=== PATIENT | male | born 1940 | race Caucasian/White ===

== ENCOUNTER → 2016-04-30 | Outpatient (CLI) | payer MEDICARE, OTHER ==
[~2016-04-30] MED LIST: ASPI300S4 PR; ASPI81TA27 PO; ATOR1TAB; CLOP75TA41; DULO30CA; FAMO-12 PO; GABA800T97; HYDROCO/APAP; LATA0.0015; LATA0.0015 EACHEYE; LEVO-28; LEVO100T8; PANTOPRAZOLE; RANO1000; TIMO0.5S32
[2016-04-30 09:45] VITALS: BP 134/82
[2016-04-30 10:00] VITALS: BP 122/73
== END | disposition home or self-care (01) ==
LOC: CHF HDHVI 09:47
PROVIDERS: ATTEND Internal Medicine Cardiovascular Disease
DX: I10 Essential (primary) hypertension (principal); I25.10 Atherosclerotic heart disease of native coronary artery without angina pectoris; M81.0 Age-related osteoporosis without current pathological fracture
CPT/HCPCS: 96372; G0463

== ENCOUNTER 2016-06-24 08:50 | Inpatient (IN) | payer MEDICARE, OTHER ==
[~2016-06-24] VITALS: Ht 185.4 cm; Wt 102.2 kg
[2016-06-24 09:39] LABS: Basophils # (auto) 0 uL; Eosinophils # (auto) 0.1 uL; Eosinophils % (auto) 0.8 % (0.0-7.0); Hematocrit 50.6 % (41.0-53.0); Hemoglobin 16.7 g/dL (13.5-17.5); Lymphocytes # (auto) 0.4 uL; Lymphocytes % (auto) 5.7 % (10.0-50.0); Mean Corpuscular Hemoglobin 32.4 pg (28.0-32.0); Mean Platelet Volume 7.5 fL (7.4-10.4); Monocytes # (auto) 0.7 uL; Monocytes % (auto) 10.3 % (0.0-12.0); Neutrophils # (auto) 5.3 uL; Neutrophils % (auto) 83.2 % (37.0-80.0); Platelet Count (auto) 229 10^3/uL (140-450); Red Cell Distribution Width 13.8 % (11.6-16.0); White Blood Cell 6.4 10^3/uL (4.4-10.8)
[2016-06-24 09:54] LABS: Albumin 3.6 g/dL (3.4-5.0); Alkaline Phosphatase 80 U/L (45-117); Anion Gap 8 (5-15); Aspartate Aminotransferase 20 U/L (15-37); BUN/Creatinine Ratio 15.7; Bilirubin, Total 0.7 mg/dL (0.2-1.0); Blood Urea Nitrogen 21 mg/dL (7-18); Calcium 8.1 mg/dL (8.5-10.1); Carbon Dioxide 26 mmol/L (21-32); Chloride 107 mmol/L (98-107); GFR African American 67 mL/min; GFR Non-African American 55 mL/min; Glucose 151 mg/dL (74-106); Magnesium 2.1 mg/dL (1.6-2.6); Potassium 4.3 mmol/L (3.5-5.1); Sodium 141 mmol/L (136-145); Total Protein 7.2 g/dL (6.4-8.2)
[2016-06-24] MEDS ORDERED: SODIUM CHLORIDE 0.9% 1,000 ML IV ONE (10:10)
[2016-06-24] MEDS ORDERED: MORPHINE SULFATE 4 MG/ML SYRG IV ONE (10:15)
[2016-06-24] MEDS ORDERED: ONDANSETRON HCL 4 MG/2 ML VIAL IV ONE (10:15)
[2016-06-24] MEDS: SODIUM CHLORIDE 0.9% 1,000 ML IV SCH (11:56)
[2016-06-24] MEDS ORDERED: LORazepam 0.5 MG TAB PO PRN (12:00)
[2016-06-24] MEDS ORDERED: TEMAZEPAM 15 MG CAP PO PRN (12:00)
[2016-06-24] MEDS ORDERED: ONDANSETRON HCL 4 MG/2 ML VIAL IV PRN (12:00)
[2016-06-24] MEDS ORDERED: MORPHINE SULF INJ 2 MG/ML SYRINGE 1ML IV PRN (12:00)
[2016-06-24] MEDS ORDERED: HYDROcodone-ACET 5/325MG TAB PO PRN (12:00)
[2016-06-24] MEDS ORDERED: ACETAMINOPHEN 500 MG TAB PO PRN (12:00)
[2016-06-24] MEDS ORDERED: NITROGLYCERIN 0.4 MG SL TAB SL PRN (12:00)
[2016-06-24] MEDS ORDERED: GABAPENTIN 400 MG CAP PO ONE (12:30)
[2016-06-24] MEDS ORDERED: PANTOPRAZOLE 40 MG TAB PO ONE (12:30)
[2016-06-24] MEDS ORDERED: CLOPIDOGREL BISULFATE 75 MG TAB PO ONE (12:30)
[2016-06-24] MEDS ORDERED: TIMOLOL MAL 0.5% OPTH(EYE) SOL 5ML OP ONE (12:30)
[2016-06-24] MEDS ORDERED: LEVOTHYROXINE SODIUM 100 MCG TAB PO ONE (12:30)
[2016-06-24] MEDS ORDERED: ASPirin-EC 81 mg tab PO ONE (12:30)
[2016-06-24 12:44] LABS: Urine Bilirubin Negative (Negative); Urine Blood Negative /uL (Negative); Urine Color Yellow (Yellow); Urine Glucose Normal (Normal); Urine Ketone Negative (Negative); Urine Mucus FEW (None Seen); Urine Nitrite POSITIVE (Negative); Urine RBC 5 /hpf (0 - 3); Urine Squamous Epithelial Cell FEW /hpf (<5); Urine Urobilinogen Normal (Negative); Urine pH 6.5 (5.0-8.0)
[2016-06-24] MEDS ORDERED: RANOLAZINE 1000 MG PO ONE (12:45)
[2016-06-24] MEDS: MORPHINE SULF INJ 2 MG/ML SYRINGE 1ML IV PRN (18:50)
[2016-06-24 20:00] VITALS: BP 132/68
[2016-06-24 22:00] VITALS: BP 132/68
[2016-06-24] MEDS: TIMOLOL MAL 0.5% OPTH(EYE) SOL 5ML OP SCH (22:00)
[2016-06-24] MEDS: ATORVASTATIN 20 MG TAB PO SCH (22:53)
[2016-06-24] MEDS: LATANOPROST 0.005 % OPTH(EYE) SOL 2.5ML EACHEYE SCH (22:54)
[2016-06-24] MEDS: GABAPENTIN 400 MG CAP PO SCH (22:54)
[2016-06-24] MEDS: DULoxetine HCL 30 MG CAP PO SCH (22:54)
[2016-06-25] VITALS (7 sets, daily range): BP systolic 105–125; BP diastolic 44–73
[2016-06-25] MEDS: SODIUM CHLORIDE 0.9% 1,000 ML IV SCH ×2 (01:17→17:44)
[2016-06-25 06:17] LABS: Hematocrit 43.6 % (41.0-53.0); Hemoglobin 14.5 g/dL (13.5-17.5); Mean Corpuscular Hemoglobin 32.3 pg (28.0-32.0); Mean Corpuscular Hgb Conc. 33.3 g/dL (32.0-36.0); Mean Corpuscular Volume 97.1 fL (80.0-100.0); Mean Platelet Volume 7.5 fL (7.4-10.4); Platelet Count (auto) 191 10^3/uL (140-450); Red Cell Distribution Width 13.7 % (11.6-16.0)
[2016-06-25 06:30] LABS: Metamyelocytes % 0; Myelocytes % 0; Promyelocytes % 0; Reactive Lymphocytes 0
[2016-06-25 06:48] LABS: BUN/Creatinine Ratio 13.8; Bilirubin, Total 0.6 mg/dL (0.2-1.0); Calcium 7.5 mg/dL (8.5-10.1); Potassium 4.5 mmol/L (3.5-5.1)
[2016-06-25] MEDS: CLOPIDOGREL BISULFATE 75 MG TAB PO SCH ×2 (10:00→17:49)
[2016-06-25] MEDS ORDERED: RANOLAZINE 1000 MG PO SCH (10:00)
[2016-06-25] MEDS: ASPirin-EC 81 mg tab PO SCH ×2 (10:00→17:49)
[2016-06-25] MEDS ORDERED: LATANOPROST 0.005 % OPTH(EYE) SOL 2.5ML OP SCH (10:00)
[2016-06-25] MEDS: PANTOPRAZOLE 40 MG TAB PO SCH (10:07)
[2016-06-25] MEDS: LEVOTHYROXINE SODIUM 100 MCG TAB PO SCH (10:07)
[2016-06-25] MEDS: DULoxetine HCL 30 MG CAP PO SCH ×2 (10:08→21:33)
[2016-06-25] MEDS: TIMOLOL MAL 0.5% OPTH(EYE) SOL 5ML OP SCH ×2 (10:09→21:33)
[2016-06-25] MEDS: GABAPENTIN 400 MG CAP PO SCH ×2 (10:09→21:33)
[2016-06-25 13:53] LABS: Platelet Estimate Adequate
[2016-06-25] MEDS: LATANOPROST 0.005 % OPTH(EYE) SOL 2.5ML EACHEYE SCH (17:45)
[2016-06-25] MEDS: ATORVASTATIN 20 MG TAB PO SCH (21:33)
[2016-06-25] MEDS ORDERED: MAGNESIUM CITRATE SOLUTION 300 ML BTL PO ONE (22:30)
[2016-06-26] MEDS: SODIUM CHLORIDE 0.9% 1,000 ML IV SCH ×2 (03:56→14:37)
[2016-06-26] MEDS: MORPHINE SULF INJ 2 MG/ML SYRINGE 1ML IV PRN (04:47)
[2016-06-26 04:50] VITALS: BP 131/66
[2016-06-26 07:31] VITALS: BP 119/50
[2016-06-26] MEDS: TIMOLOL MAL 0.5% OPTH(EYE) SOL 5ML OP SCH (11:12)
[2016-06-26] MEDS: ASPirin-EC 81 mg tab PO SCH (11:13)
[2016-06-26] MEDS: CLOPIDOGREL BISULFATE 75 MG TAB PO SCH (11:13)
[2016-06-26] MEDS: PANTOPRAZOLE 40 MG TAB PO SCH (11:13)
[2016-06-26] MEDS: DULoxetine HCL 30 MG CAP PO SCH (11:13)
[2016-06-26] MEDS: GABAPENTIN 400 MG CAP PO SCH (11:13)
[2016-06-26] MEDS: LEVOTHYROXINE SODIUM 100 MCG TAB PO SCH (11:13)
[2016-06-26 13:00] VITALS: BP 129/65
[2016-06-26 15:19] VITALS: BP 129/65
[2016-06-26 16:56] VITALS: BP 137/74
== END 2016-06-26 18:05 | disposition home or self-care (01) | DRG 445 ==
LOC: ER 08:52 → TELE 08:53 → TELE-E-ADS 15:11 → TELE-CENTR 18:27
PROVIDERS: ADMIT Internal Medicine; ATTEND Internal Medicine Cardiovascular Disease
DX: K80.20 Calculus of gallbladder without cholecystitis without obstruction (principal); A09 Infectious gastroenteritis and colitis, unspecified; C67.9 Malignant neoplasm of bladder, unspecified; E03.9 Hypothyroidism, unspecified; E78.5 Hyperlipidemia, unspecified; I10 Essential (primary) hypertension; I25.10 Atherosclerotic heart disease of native coronary artery without angina pectoris; Z85.51 Personal history of malignant neoplasm of bladder; Z82.49 Family history of ischemic heart disease and other diseases of the circulatory system; Z88.2 Allergy status to sulfonamides; Z95.1 Presence of aortocoronary bypass graft; Z90.49 Acquired absence of other specified parts of digestive tract
CPT/HCPCS: 36415; 71020; 74176; 74181; 76705; 80053; 80061; 81001; 82150; 82550; 83690; 83735; 84484; 85007; 85025; 85027; 93005; 94761; J2405

== ENCOUNTER → 2016-11-09 | Outpatient (CLI) | payer MEDICARE ==
[~2016-11-09] MED LIST changes: -LEVO-28; -RANO1000
== END | disposition home or self-care (01) ==
LOC: Rad HDHVI 12:17
PROVIDERS: ATTEND Internal Medicine Cardiovascular Disease
DX: I48.0 Paroxysmal atrial fibrillation (principal); I10 Essential (primary) hypertension; N20.0 Calculus of kidney
CPT/HCPCS: 93306; 93880

== ENCOUNTER → 2016-11-11 | Outpatient (CLI) | payer MEDICARE ==
[~2016-11-11] VITALS: Ht 182.9 cm; Wt 99.8 kg
== END | disposition home or self-care (01) ==
LOC: Rad HDHVI 13:01
PROVIDERS: ATTEND Internal Medicine Cardiovascular Disease
DX: I48.0 Paroxysmal atrial fibrillation (principal); I25.119 Atherosclerotic heart disease of native coronary artery with unspecified angina pectoris; I10 Essential (primary) hypertension; E78.5 Hyperlipidemia, unspecified; F41.9 Anxiety disorder, unspecified; Z95.1 Presence of aortocoronary bypass graft; N20.0 Calculus of kidney
CPT/HCPCS: 78452; 93017; 96374; A9500

== ENCOUNTER → 2016-12-27 | Outpatient (CLI) | payer MEDICARE ==
[2016-12-27 09:00] VITALS: BP 133/70
[2016-12-27 09:33] VITALS: BP 131/78
[2016-12-27 12:29] LABS: Basophils # (auto) 0 uL; Basophils % (auto) 0.9 % (0.0-2.0); Eosinophils # (auto) 0.2 uL; Eosinophils % (auto) 2.8 % (0.0-7.0); Hematocrit 45.5 % (41.0-53.0); Hemoglobin 15.3 g/dL (13.5-17.5); Lymphocytes # (auto) 1.7 uL; Lymphocytes % (auto) 28.9 % (10.0-50.0); Mean Corpuscular Hemoglobin 33.6 pg (28.0-32.0); Mean Corpuscular Hgb Conc. 33.6 g/dL (32.0-36.0); Mean Corpuscular Volume 99.9 fL (80.0-100.0); Mean Platelet Volume 7.6 fL (6.9-10.8); Monocytes # (auto) 0.8 uL; Monocytes % (auto) 13.9 % (0.0-12.0); Neutrophils # (auto) 3.1 uL; Neutrophils % (auto) 53.5 % (37.0-80.0); Nucleated Red Blood Cells % 0.3 %; Platelet Count (auto) 197 10^3/uL (140-450); Red Cell Distribution Width 13.6 % (11.8-14.3); White Blood Cell 5.7 10^3/uL (4.4-10.8)
[2016-12-27 12:30] LABS: BUN/Creatinine Ratio 16.1; Calcium 8.7 mg/dL (8.5-10.1); Potassium 4.2 mmol/L (3.5-5.1)
[2016-12-27 12:54] LABS: INR 1.05 (0.9-1.15); Partial Thromboplastin Time 31.9 sec (22.64-33.71); Prothrombin Time 11.5 sec (9.37-12.3)
== END | disposition home or self-care (01) ==
LOC: CHF HDHVI 08:56
PROVIDERS: ATTEND Internal Medicine Cardiovascular Disease
DX: Z01.810 Encounter for preprocedural cardiovascular examination (principal); I10 Essential (primary) hypertension; D64.9 Anemia, unspecified; R79.1 Abnormal coagulation profile; I25.10 Atherosclerotic heart disease of native coronary artery without angina pectoris; Z98.1 Arthrodesis status
CPT/HCPCS: 36415; 80048; 85025; 85610; 85730; 93005; 96372; G0463

== ENCOUNTER → 2017-03-22 | Outpatient (CLI) | payer MEDICARE | END | disposition home or self-care (01) | LOC: Rad HDHVI 10:22 | PROVIDERS: ATTEND Internal Medicine Cardiovascular Disease | DX: I50.33 Acute on chronic diastolic (congestive) heart failure (principal); I65.29 Occlusion and stenosis of unspecified carotid artery | CPT/HCPCS: 93880 ==

== ENCOUNTER → 2017-05-25 | Outpatient (CLI) | payer MEDICARE ==
[2017-05-27 14:23] LABS: Hepatitis B Surface Antibody Negative
[2017-05-27 14:34] LABS: Hepatitis B Surface Antigen Negative (Negative)
== END | disposition home or self-care (01) ==
LOC: CHF HDHVI 08:46
PROVIDERS: ATTEND Internal Medicine Cardiovascular Disease
DX: Z20.5 Contact with and (suspected) exposure to viral hepatitis (principal)
CPT/HCPCS: 36415; 86706; 87340

== ENCOUNTER → 2017-06-27 | Outpatient (CLI) | payer MEDICARE ==
[2017-06-27 15:00] VITALS: BP 149/69
[2017-06-27 15:25] VITALS: BP 149/79
== END | disposition home or self-care (01) ==
LOC: CHF HDHVI 15:00
PROVIDERS: ATTEND Internal Medicine Cardiovascular Disease
DX: M81.0 Age-related osteoporosis without current pathological fracture (principal)
CPT/HCPCS: 96372; G0463

== ENCOUNTER → 2017-08-10 | Outpatient (CLI) | payer MEDICARE ==
[2017-08-10 12:10] LABS: Urine Blood TRACE /uL (Negative); Urine Specific Gravity 1.017 (1.001-1.035)
[2017-08-10 12:20] LABS: Basophils # (auto) 0.1 uL; Basophils % (auto) 0.9 % (0.0-2.0); Eosinophils # (auto) 0.2 uL; Eosinophils % (auto) 2.6 % (0.0-7.0); Hematocrit 49.4 % (41.0-53.0); Hemoglobin 16.6 g/dL (13.5-17.5); Lymphocytes # (auto) 1.9 uL; Lymphocytes % (auto) 27.7 % (10.0-50.0); Mean Corpuscular Hemoglobin 33.4 pg (28.0-32.0); Mean Corpuscular Hgb Conc. 33.6 g/dL (32.0-36.0); Mean Corpuscular Volume 99.3 fL (80.0-100.0); Neutrophils # (auto) 3.9 uL; Neutrophils % (auto) 54.8 % (37.0-80.0); Nucleated Red Blood Cells % 0.4 %; Platelet Count (auto) 220 10^3/uL (140-450); Red Blood Cells 4.97 10^6/uL (4.5-5.90); Red Cell Distribution Width 13.9 % (11.8-14.3)
[2017-08-10 12:24] LABS: Free T4 (Free Thyroxine) 1.23 ng/dL (0.89-1.76); Prostate Specific Antigen 0.04 ng/mL (0.0-4.0)
[2017-08-10 12:31] LABS: BUN/Creatinine Ratio 19.2; Bilirubin, Total 0.5 mg/dL (0.2-1.0); Calcium 9.2 mg/dL (8.5-10.1); Potassium 4.2 mmol/L (3.5-5.1); Total Protein 7.6 g/dL (6.4-8.2)
== END | disposition home or self-care (01) ==
LOC: LAB 08:53
PROVIDERS: ATTEND Internal Medicine Cardiovascular Disease
DX: E78.5 Hyperlipidemia, unspecified (principal); D64.9 Anemia, unspecified; I10 Essential (primary) hypertension; E03.9 Hypothyroidism, unspecified; E55.9 Vitamin D deficiency, unspecified; E11.9 Type 2 diabetes mellitus without complications; R53.81 Other malaise; R97.20 Elevated prostate specific antigen [PSA]; D51.9 Vitamin B12 deficiency anemia, unspecified; N39.0 Urinary tract infection, site not specified
CPT/HCPCS: 36415; 80053; 80061; 81003; 82306; 82607; 83036; 84153; 84403; 84439; 84443; 85025

== ENCOUNTER → 2017-10-25 | Outpatient (CLI) | payer MEDICARE | END | disposition home or self-care (01) | LOC: Rad HDHVI 09:16 | PROVIDERS: ATTEND Internal Medicine Cardiovascular Disease | DX: I10 Essential (primary) hypertension (principal); I63.9 Cerebral infarction, unspecified | CPT/HCPCS: 93880 ==

== ENCOUNTER → 2017-10-26 | Outpatient (CLI) | payer MEDICARE ==
[~2017-10-26] VITALS: Ht 185.4 cm; Wt 102.5 kg
== END | disposition home or self-care (01) ==
LOC: Rad HDHVI 09:24
PROVIDERS: ATTEND Internal Medicine Cardiovascular Disease
DX: I10 Essential (primary) hypertension (principal); C64.9 Malignant neoplasm of unspecified kidney, except renal pelvis; E11.9 Type 2 diabetes mellitus without complications; R06.02 Shortness of breath; E03.9 Hypothyroidism, unspecified; E78.5 Hyperlipidemia, unspecified; Z79.82 Long term (current) use of aspirin; Z88.1 Allergy status to other antibiotic agents
CPT/HCPCS: 78452; 93017; 96374; A9500

== ENCOUNTER → 2018-01-10 | Outpatient (CLI) | payer MEDICARE ==
[2018-01-10 16:08] LABS: Basophils # (auto) 0 uL; Basophils % (auto) 0.5 % (0.0-2.0); Eosinophils # (auto) 0.2 uL; Eosinophils % (auto) 2.4 % (0.0-7.0); Hematocrit 48.3 % (41.0-53.0); Hemoglobin 16.2 g/dL (13.5-17.5); Lymphocytes # (auto) 1.9 uL; Lymphocytes % (auto) 24.7 % (10.0-50.0); Mean Corpuscular Hemoglobin 33.5 pg (28.0-32.0); Mean Corpuscular Hgb Conc. 33.5 g/dL (32.0-36.0); Monocytes # (auto) 1.1 uL; Monocytes % (auto) 14.8 % (0.0-12.0); Neutrophils # (auto) 4.3 uL; Neutrophils % (auto) 57.6 % (37.0-80.0); Nucleated Red Blood Cells % 0.2 %; Platelet Count (auto) 228 10^3/uL (140-450); Red Blood Cells 4.83 10^6/uL (4.5-5.90); White Blood Cell 7.5 10^3/uL (4.4-10.8)
[2018-01-10 16:17] LABS: Potassium 4.7 mmol/L (3.5-5.1)
[2018-01-10 16:18] LABS: Albumin 3.7 g/dL (3.4-5.0); Calcium 8.6 mg/dL (8.5-10.1)
[2018-01-10 16:21] LABS: BUN/Creatinine Ratio 16.8
[2018-01-10 16:23] LABS: Bilirubin, Total 0.4 mg/dL (0.2-1.0); Total Protein 7.3 g/dL (6.4-8.2)
== END | disposition home or self-care (01) ==
LOC: Rad HDHVI 12:29
PROVIDERS: ATTEND Internal Medicine Cardiovascular Disease
DX: S09.90XA Unspecified injury of head, initial encounter (principal); I70.0 Atherosclerosis of aorta; E03.9 Hypothyroidism, unspecified; D64.9 Anemia, unspecified; I10 Essential (primary) hypertension; R42 Dizziness and giddiness; Z91.81 History of falling; X58.XXXA Exposure to other specified factors, initial encounter; Y93.89 Activity, other specified; Y92.89 Other specified places as the place of occurrence of the external cause; Y99.8 Other external cause status
CPT/HCPCS: 36415; 70450; 71111; 80053; 84443; 85025

== ENCOUNTER → 2018-01-17 | Outpatient (CLI) | payer MEDICARE | END | disposition home or self-care (01) | LOC: Rad HDHVI 08:48 | PROVIDERS: ATTEND Internal Medicine Cardiovascular Disease | DX: I08.1 Rheumatic disorders of both mitral and tricuspid valves (principal); I49.9 Cardiac arrhythmia, unspecified | CPT/HCPCS: 93306 ==

== ENCOUNTER → 2018-11-17 | Outpatient (CLI) | payer MEDICARE ==
[~2018-11-17] MED LIST changes: +ASPI-404 PO; -ASPI81TA27 PO
== END | disposition home or self-care (01) ==
LOC: Rad HDHVI 08:52
PROVIDERS: ATTEND Internal Medicine
DX: K80.20 Calculus of gallbladder without cholecystitis without obstruction (principal); K57.30 Diverticulosis of large intestine without perforation or abscess without bleeding; N28.1 Cyst of kidney, acquired; N20.0 Calculus of kidney; M43.28 Fusion of spine, sacral and sacrococcygeal region; I70.0 Atherosclerosis of aorta
CPT/HCPCS: 74176

== ENCOUNTER → 2018-12-12 | Outpatient (CLI) | payer MEDICARE | END | disposition home or self-care (01) | LOC: Rad HDHVI 10:29 | PROVIDERS: ATTEND Internal Medicine | DX: I25.10 Atherosclerotic heart disease of native coronary artery without angina pectoris (principal); I77.9 Disorder of arteries and arterioles, unspecified | CPT/HCPCS: 93880 ==

== ENCOUNTER → 2019-03-12 | Outpatient (CLI) | payer MEDICARE ==
[~2019-03-12] MED LIST changes: -ASPI300S4 PR; -ATOR1TAB; -GABA800T97; -HYDROCO/APAP; -LATA0.0015; -LEVO100T8; -PANTOPRAZOLE; +PREG50CA PO
== END | disposition home or self-care (01) ==
LOC: Rad HDHVI 15:02
PROVIDERS: ATTEND Internal Medicine Cardiovascular Disease
DX: I34.0 Nonrheumatic mitral (valve) insufficiency (principal); I77.9 Disorder of arteries and arterioles, unspecified; I10 Essential (primary) hypertension; E78.5 Hyperlipidemia, unspecified
CPT/HCPCS: 93306

== ENCOUNTER → 2019-04-02 | Outpatient (CLI) | payer MEDICARE | END | disposition home or self-care (01) | LOC: Rad HDHVI 11:09 | PROVIDERS: ATTEND Internal Medicine | DX: J84.9 Interstitial pulmonary disease, unspecified (principal); I70.0 Atherosclerosis of aorta; M85.80 Other specified disorders of bone density and structure, unspecified site | CPT/HCPCS: 71046 ==

== ENCOUNTER → 2019-04-17 | Outpatient (CLI) | payer MEDICARE ==
[~2019-04-17] VITALS: Ht 182.9 cm; Wt 105.2 kg
== END | disposition home or self-care (01) ==
LOC: Rad HDHVI 14:00
PROVIDERS: ATTEND Internal Medicine
DX: E78.00 Pure hypercholesterolemia, unspecified (principal); E03.9 Hypothyroidism, unspecified; R07.9 Chest pain, unspecified; I10 Essential (primary) hypertension; Z95.1 Presence of aortocoronary bypass graft; Z95.5 Presence of coronary angioplasty implant and graft
CPT/HCPCS: 78452; 93017; 96374; A9500

== ENCOUNTER → 2019-08-24 | Outpatient (CLI) | payer MEDICARE ==
[~2019-08-24] MED LIST changes: +ATOR80TA PO; +DENO60SO SC; +GABA400C PO; +HYDR-4833 PO; -LATA0.0015 EACHEYE; +LATA0.0019 EACHEYE; +LEVO100T8 PO; +LISI-275 PO; +PANT40TA2 PO
[2019-08-24 10:00] VITALS: BP 135/64
--- NOTE | 2019-08-24 10:00 | NUR ---
PT ARRIVED TO [facility] FROM BACK OFFICE FOR PRE-OP. PATEINT ALERT AND AWAKE WITH NO S/S OF DISTRESS/SOB OR PAIN AT THIS TIME. WILL CARRY OUT ORDERS.
[2019-08-24 10:15] VITALS: BP 128/67
--- NOTE | 2019-08-24 10:15 | NUR ---
Pre-Op Discharge Summary: Pre-op orders received and carried out per MD of LABS and chest xrays. EKG previously performed in back office and previously given a copy of EKG. Patient given instructions to go to [facility] out patient on 08/29/19 for further follow up care and procedure. pt also informed to report to [facility] for pre registration for COVID swabbing today. Pt verbalized understanding.
[2019-08-24 12:10] LABS: Basophils # (auto) 0.1 10 ^3/uL (0-0.2); Basophils % (auto) 0.8 % (0.0-2.0); Eosinophils # (auto) 0.2 10 ^3/uL (0-0.8); Hemoglobin 15.1 g/dL (13.5-17.5); Lymphocytes # (auto) 1.5 10 ^3/uL (0.4-5.4); Lymphocytes % (auto) 21.3 % (10.0-50.0); Mean Corpuscular Hemoglobin 30.7 pg (28.0-32.0); Mean Corpuscular Hgb Conc. 32.1 g/dL (32.0-36.0); Mean Corpuscular Volume 95.6 fL (80.0-100.0); Monocytes # (auto) 0.9 10 ^3/uL (0-1.3); Monocytes % (auto) 11.9 % (0.0-12.0); Neutrophils # (auto) 4.5 10 ^3/uL (1.6-8.6); Platelet Count (auto) 277 10^3/uL (140-450); Red Blood Cells 4.92 10^6/uL (4.5-5.90); Red Cell Distribution Width 15.1 % (11.8-14.3); White Blood Cell 7.2 10^3/uL (4.4-10.8)
[2019-08-24 12:12] LABS: INR 1.04 (0.9-1.15); Partial Thromboplastin Time 31.3 sec (23.64-32.05)
[2019-08-24 12:31] LABS: BUN/Creatinine Ratio 12.7; Calcium 8.7 mg/dL (8.5-10.1)
== END | disposition home or self-care (01) ==
LOC: Rad HDHVI 10:08
PROVIDERS: ATTEND Internal Medicine
DX: Z01.812 Encounter for preprocedural laboratory examination (principal); J98.11 Atelectasis; I25.10 Atherosclerotic heart disease of native coronary artery without angina pectoris; I10 Essential (primary) hypertension; R06.02 Shortness of breath; R07.9 Chest pain, unspecified
CPT/HCPCS: 36415; 71046; 80048; 85025; 85610; 85730; G0463

== ENCOUNTER 2019-08-29 08:16 | Inpatient (IN) | payer MEDICARE ==
[~2019-08-29] VITALS: Ht 182.9 cm; Wt 105.4 kg
[~2019-08-29 08:16] MED LIST changes: -CLOP75TA41; +CLOP75TA41 PO; -DULO30CA; +DULO30CA PO; -PREG50CA PO; -TIMO0.5S32; +TIMO0.5S32 EACHEYE
[2019-08-29] MEDS ORDERED: LISI-646 PO (08:54)
[2019-08-29] MEDS ORDERED: IODIXANOL 320MG/ML 100ML BTL IV ONE (12:10)
[2019-08-29] MEDS ORDERED: LIDOCAINE 2%HCL (LOCAL ANESTH.) INJ 20ML MDV ONE (12:10)
[2019-08-29] MEDS ORDERED: ANGIOMAX 250 MG VIAL IV ONE (13:07)
[2019-08-29] MEDS ORDERED: HEPARIN SODIUM (PORCINE) 5000 UNITS/ML 1ML VIAL ONE (13:07)
[2019-08-29] MEDS ORDERED: MIDAZOLAM HCL 1MG/1ML-2 ML VIAL ONE (13:08)
[2019-08-29] MEDS ORDERED: VERAPAMIL 2.5MG/ML INJ 2ML VIAL IV ONE (13:08)
[2019-08-29] MEDS ORDERED: SODIUM CHL 0.9% 50 ML ONE (13:08)
[2019-08-29] MEDS ORDERED: fentaNYL CITRATE 100 MCG/2 ML VL ONE (13:08)
[2019-08-29] MEDS ORDERED: CLOPIDOGREL BISULFATE 75 MG TAB ONE (14:23)
[2019-08-29] MEDS ORDERED: ASPirin 81 mg TAB ONE (14:23)
[2019-08-29] MEDS ORDERED: SODIUM CHLORIDE 0.9% 1,000 ML IV SCH (15:14)
[2019-08-29] MEDS ORDERED: HYDROcodone-ACET 5/325MG TAB PO PRN (15:15)
[2019-08-29] MEDS ORDERED: ONDANSETRON HCL 4 MG/2 ML VIAL IV PRN (15:15)
[2019-08-29] MEDS ORDERED: ACETAMINOPHEN 500 MG TAB PO PRN (15:15)
[2019-08-29] MEDS ORDERED: NITROGLYCERIN 0.4 MG SL TAB SL PRN (15:15)
[2019-08-29] MEDS ORDERED: MORPHINE SULF INJ 2 MG/ML SYRINGE 1ML IV PRN (15:15)
[2019-08-29] MEDS ORDERED: ZOLPIDEM TARTRATE 5 MG TAB PO PRN (15:15)
[2019-08-29 18:15] VITALS: BP 107/74
[2019-08-29 20:00] VITALS: BP 133/67
[2019-08-29] MEDS: SODIUM CHLOR 0.9% PF (SALINE LOCK) 10ML VIAL/SYR IV SCH (20:18)
[2019-08-29 21:00] VITALS: BP 135/70
[2019-08-29] MEDS ORDERED: GABA400C11 PO (21:39)
[2019-08-29] MEDS ORDERED: GABAPENTIN 400 MG CAP PO SCH (22:00)
[2019-08-29] MEDS ORDERED: PANTOPRAZOLE 40 MG TAB PO SCH (22:00)
[2019-08-29] MEDS ORDERED: LATANOPROST 0.005 % OPTH(EYE) SOL 2.5ML EACHEYE SCH (22:00)
[2019-08-29] MEDS ORDERED: LISINOPRIL 10 MG TAB PO SCH (22:00)
[2019-08-29] MEDS: TIMOLOL MAL 0.5% OPTH(EYE) SOL 5ML EACHEYE SCH (22:00)
[2019-08-29] MEDS ORDERED: ATORVASTATIN 20 MG TAB PO SCH (22:00)
[2019-08-29 22:15] VITALS: BP 132/71
[2019-08-29] MEDS: DULoxetine HCL 30 MG CAP PO SCH (22:17)
[2019-08-29 23:34] VITALS: BP 128/71
[2019-08-30 05:00] VITALS: BP 130/68
[2019-08-30] MEDS: SODIUM CHLOR 0.9% PF (SALINE LOCK) 10ML VIAL/SYR IV SCH (06:26)
[2019-08-30] MEDS ORDERED: LEVOTHYROXINE SODIUM 100 MCG TAB PO SCH (07:00)
[2019-08-30 08:00] VITALS: BP 144/81
[2019-08-30 09:00] VITALS: BP 144/81
[2019-08-30] MEDS: TIMOLOL MAL 0.5% OPTH(EYE) SOL 5ML EACHEYE SCH (09:47)
[2019-08-30] MEDS: DULoxetine HCL 30 MG CAP PO SCH (09:48)
[2019-08-30] MEDS ORDERED: ASPirin 81 mg TAB PO SCH (10:00)
[2019-08-30] MEDS ORDERED: FAMOTIDINE 20 MG TAB PO SCH (10:00)
[2019-08-30] MEDS ORDERED: CLOPIDOGREL BISULFATE 75 MG TAB PO SCH ×2 (10:00)
[2019-08-30] MEDS ORDERED: GABAPENTIN 400 MG CAP PO SCH (10:00)
[2019-08-30 11:54] VITALS: BP 144/81
[2019-08-30 13:00] VITALS: BP 112/66
== END 2019-08-30 14:08 | disposition home or self-care (01) | DRG 247 ==
LOC: CATH 08:16 → TELE-CENTR 18:06
PROVIDERS: ADMIT Internal Medicine; ATTEND Internal Medicine
PROC: 027034Z Dilation of Coronary Artery, One Artery with Drug-eluting Intraluminal Device, Percutaneous Approach (ICD-10-PCS; principal; 2019-08-29)
PROC: B213YZZ Fluoroscopy of Multiple Coronary Artery Bypass Grafts using Other Contrast (ICD-10-PCS; 2019-08-29)
PROC: B211YZZ Fluoroscopy of Multiple Coronary Arteries using Other Contrast (ICD-10-PCS; 2019-08-29)
PROC: B218YZZ Fluoroscopy of Left Internal Mammary Bypass Graft using Other Contrast (ICD-10-PCS; 2019-08-29)
DX: I25.10 Atherosclerotic heart disease of native coronary artery without angina pectoris (principal); C67.9 Malignant neoplasm of bladder, unspecified; E66.9 Obesity, unspecified; E78.5 Hyperlipidemia, unspecified; G62.9 Polyneuropathy, unspecified; F32.9 Major depressive disorder, single episode, unspecified; N18.3 Chronic kidney disease, stage 3 (moderate); I12.9 Hypertensive chronic kidney disease with stage 1 through stage 4 chronic kidney disease, or unspecified chronic kidney disease; Z85.51 Personal history of malignant neoplasm of bladder; Z93.6 Other artificial openings of urinary tract status; Z98.61 Coronary angioplasty status; Z95.1 Presence of aortocoronary bypass graft; Z68.31 Body mass index [BMI] 31.0-31.9, adult
CPT/HCPCS: 87081; 92928; 93455; 99152; 99153; C1874; G0378; J2250; Q9967

== ENCOUNTER → 2019-12-13 | Outpatient (CLI) | payer MEDICARE ==
[~2019-12-13] MED LIST changes: -ASPI-404 PO; +ASPI-543 PO; +GABA400C11 PO; -LISI-275 PO; +LISI-646 PO
[2019-12-13 12:08] LABS: Basophils # (auto) 0.1 10 ^3/uL (0-0.2); Basophils % (auto) 0.9 % (0.0-2.0); Eosinophils # (auto) 0.2 10 ^3/uL (0-0.8); Eosinophils % (auto) 3.2 % (0.0-7.0); Hematocrit 42.3 % (41.0-53.0); Hemoglobin 13.7 g/dL (13.5-17.5); Lymphocytes % (auto) 28.6 % (10.0-50.0); Mean Corpuscular Hemoglobin 29.5 pg (28.0-32.0); Mean Corpuscular Hgb Conc. 32.3 g/dL (32.0-36.0); Mean Corpuscular Volume 91.4 fL (80.0-100.0); Monocytes % (auto) 14.4 % (0.0-12.0); Neutrophils # (auto) 3.6 10 ^3/uL (1.6-8.6); Neutrophils % (auto) 52.9 % (37.0-80.0); Nucleated Red Blood Cells % 0.1 %; Platelet Count (auto) 267 10^3/uL (140-450); Red Blood Cells 4.63 10^6/uL (4.5-5.90); White Blood Cell 6.9 10^3/uL (4.4-10.8)
[2019-12-13 12:10] LABS: Urine Blood Negative /uL (Negative); Urine Specific Gravity 1.012 (1.001-1.035)
[2019-12-13 17:57] LABS: Potassium 4.6 mmol/L (3.5-5.1)
[2019-12-13 18:19] LABS: Albumin 3.6 g/dL (3.4-5.0); BUN/Creatinine Ratio 13.7; Bilirubin, Direct 0.1 mg/dL (0-0.2); Bilirubin, Total 0.4 mg/dL (0.2-1.0); Calcium 8.9 mg/dL (8.5-10.1)
== END | disposition home or self-care (01) ==
LOC: LAB 09:51
PROVIDERS: ATTEND Internal Medicine Cardiovascular Disease
DX: C61 Malignant neoplasm of prostate (principal); D51.3 Other dietary vitamin B12 deficiency anemia; D64.9 Anemia, unspecified; E11.9 Type 2 diabetes mellitus without complications; E55.9 Vitamin D deficiency, unspecified; I10 Essential (primary) hypertension; R00.2 Palpitations; R53.1 Weakness; R30.0 Dysuria
CPT/HCPCS: 36415; 80048; 80061; 80076; 81003; 82306; 83036; 84153; 84403; 84443; 85025; 87086

== ENCOUNTER → 2019-12-19 | Outpatient (CLI) | payer MEDICARE | END | disposition home or self-care (01) | LOC: Rad HDHVI 13:01 | PROVIDERS: ATTEND Internal Medicine Cardiovascular Disease | DX: I07.1 Rheumatic tricuspid insufficiency (principal); I48.91 Unspecified atrial fibrillation; R06.02 Shortness of breath; R07.89 Other chest pain; Z95.5 Presence of coronary angioplasty implant and graft | CPT/HCPCS: 93306 ==

== ENCOUNTER 2020-06-25 06:13 | Inpatient (IN) | payer MEDICARE ==
[2020-06-20 09:58] LABS: Urine Bacteria FEW /hpf (None Seen); Urine Blood Negative /uL (Negative); Urine WBC 22 /hpf (0 - 3)
[2020-06-20 10:04] LABS: Basophils # (auto) 0.1 10 ^3/uL (0-0.2); Basophils % (auto) 1.1 % (0.0-2.0); Eosinophils # (auto) 0.2 10 ^3/uL (0-0.8); Eosinophils % (auto) 3.3 % (0.0-7.0); Hematocrit 39.7 % (41.0-53.0); Lymphocytes # (auto) 1.4 10 ^3/uL (0.4-5.4); Lymphocytes % (auto) 24.5 % (10.0-50.0); Mean Corpuscular Hemoglobin 28.1 pg (28.0-32.0); Mean Corpuscular Hgb Conc. 32.7 g/dL (32.0-36.0); Mean Corpuscular Volume 85.9 fL (80.0-100.0); Monocytes # (auto) 0.8 10 ^3/uL (0-1.3); Neutrophils # (auto) 3.4 10 ^3/uL (1.6-8.6); Neutrophils % (auto) 58.1 % (37.0-80.0); Nucleated Red Blood Cells % 0.1 %; Platelet Count (auto) 298 10^3/uL (140-450); Red Blood Cells 4.62 10^6/uL (4.5-5.90); Red Cell Distribution Width 16.1 % (11.8-14.3); White Blood Cell 5.8 10^3/uL (4.4-10.8)
[2020-06-20 10:11] LABS: Albumin 3.7 g/dL (3.4-5.0); Potassium 4.3 mmol/L (3.5-5.1)
[2020-06-20 10:15] LABS: BUN/Creatinine Ratio 14.3; Bilirubin, Total 0.5 mg/dL (0.2-1.0); Total Protein 7.2 g/dL (6.4-8.2)
[2020-06-20 10:29] LABS: INR 1.07 (0.9-1.15); Partial Thromboplastin Time 31.8 sec (23.0-31.2)
[~2020-06-25] VITALS: Ht 182.9 cm; Wt 101.5 kg
[~2020-06-25 06:13] MED LIST changes: -CLOP75TA41 PO; +CLOP75TA70 PO
[2020-06-25] MEDS ORDERED: ceFAZolin 1GM/50ML 50 ML IV ONE (07:18)
[2020-06-25] MEDS ORDERED: SUCCINYLCHOLINE CHLORIDE 20 MG/ML 10ML VIAL IV ONE (07:42)
[2020-06-25] MEDS ORDERED: fentaNYL CITRATE 5 ML ONE (07:44)
[2020-06-25] MEDS ORDERED: LIDOCAINE 2% (LOCAL ANESTH.) PF 5ml SDV ONE (07:45)
[2020-06-25] MEDS ORDERED: PROPOFOL 10 MG/ML 20 ML IV ONE ×2 (07:45→09:31)
[2020-06-25] MEDS ORDERED: MIDAZOLAM HCL 1MG/1ML-2 ML VIAL ONE (07:45)
[2020-06-25] MEDS ORDERED: ROCURONIUM 10MG/ML 10ML VIAL IV ONE (07:45)
[2020-06-25] MEDS ORDERED: levoFLOXacin 500MG 100 ML IV ONE (07:53)
[2020-06-25] MEDS ORDERED: GLYCOPYRROLATE 0.2 MG/ML 1ML VIAL IV ONE (08:02)
[2020-06-25] MEDS ORDERED: NEOSTIGMINE 1 MG/ML INJ (10mg/10ML VIAL) IV ONE (08:02)
[2020-06-25] MEDS ORDERED: BUPIVACAINE 0.25% INJ 50ML VIAL ONE (08:25)
[2020-06-25] MEDS ORDERED: ONDANSETRON HCL 4 MG/2 ML VIAL ONE (09:34)
[2020-06-25] MEDS ORDERED: ONDANSETRON HCL 4 MG/2 ML VIAL IV PRN ×2 (09:45→10:30)
[2020-06-25] MEDS ORDERED: D5W/SOD CHL 0.45%/KCL 20MEQ 1,000 ML IV ONE (09:45)
[2020-06-25] MEDS ORDERED: levoFLOXacin 500 MG TAB PO SCH (10:00)
[2020-06-25] MEDS: HYDROmorphone HCL 2 MG/ML VL IV PRN ×6 (10:23→21:44)
[2020-06-25] MEDS ORDERED: NITROGLYCERIN 0.4 MG SL TAB SL PRN (10:30)
[2020-06-25] MEDS ORDERED: MORPHINE SULF INJ 2 MG/ML SYRINGE 1ML IV PRN (10:30)
[2020-06-25] MEDS ORDERED: HYDROmorphone HCL 2 MG/ML VL IV PRN (10:30)
[2020-06-25] MEDS: SODIUM CHLORIDE 0.9% 1,000 ML IV SCH (15:43)
[2020-06-25 16:33] VITALS: BP 111/73
[2020-06-25] MEDS: TIMOLOL MAL 0.5% OPTH(EYE) SOL 5ML EACHEYE SCH ×2 (21:27→21:43)
[2020-06-25] MEDS: LATANOPROST 0.005 % OPTH(EYE) SOL 2.5ML EACHEYE SCH (21:27)
[2020-06-25 22:00] VITALS: BP 136/73
[2020-06-26] MEDS: SODIUM CHLORIDE 0.9% 1,000 ML IV SCH ×2 (04:04→18:31)
[2020-06-26 05:00] VITALS: BP 134/73
[2020-06-26 06:39] LABS: Hematocrit 33.2 % (41.0-53.0); Hemoglobin 11.1 g/dL (13.5-17.5); Mean Corpuscular Hemoglobin 29.1 pg (28.0-32.0); Mean Corpuscular Hgb Conc. 33.5 g/dL (32.0-36.0); Mean Corpuscular Volume 86.7 fL (80.0-100.0); Platelet Count (auto) 220 10^3/uL (140-450); Red Blood Cells 3.82 10^6/uL (4.5-5.90); Red Cell Distribution Width 16.3 % (11.8-14.3); White Blood Cell 7.6 10^3/uL (4.4-10.8)
[2020-06-26 06:49] LABS: Potassium 4.2 mmol/L (3.5-5.1)
[2020-06-26 06:56] LABS: Basophils % (manual) 0 (0.0-2.0); Blast Cells 0; Metamyelocytes % 0; Myelocytes % 0; Promyelocytes % 0; Reactive Lymphocytes 0
[2020-06-26 07:03] LABS: Albumin 2.9 g/dL (3.4-5.0); BUN/Creatinine Ratio 16.1; Bilirubin, Total 0.6 mg/dL (0.2-1.0); Calcium 8.4 mg/dL (8.5-10.1); Total Protein 5.7 g/dL (6.4-8.2)
[2020-06-26 07:43] LABS: Band Neutrophils % (manual) 3; Eosinophils % (manual) 1 (0-7); Lymphocytes % (manual) 16 (10.0-50.0); Monocytes % (manual) 18 (0-12)
[2020-06-26 09:23] VITALS: BP 136/74
[2020-06-26] MEDS: levoFLOXacin 500MG 100 ML IV SCH (10:15)
[2020-06-26] MEDS: TIMOLOL MAL 0.5% OPTH(EYE) SOL 5ML EACHEYE SCH ×2 (10:16→21:29)
[2020-06-26] MEDS: PANTOPRAZOLE 40 MG/10 ML VIAL INJ IV SCH ×2 (10:18→10:27)
[2020-06-26] MEDS: HYDROmorphone HCL 2 MG/ML VL IV PRN ×4 (10:18→22:31)
[2020-06-26] MEDS: LISINOPRIL 10 MG TAB PO SCH (10:19)
[2020-06-26 12:31] VITALS: BP 136/72
[2020-06-26 16:46] VITALS: BP 123/61
[2020-06-26] MEDS: LATANOPROST 0.005 % OPTH(EYE) SOL 2.5ML EACHEYE SCH (21:30)
[2020-06-26 22:00] VITALS: BP 127/74
[2020-06-27] MEDS: HYDROcodone-ACET 5/325MG TAB PO PRN ×3 (00:03→13:52)
[2020-06-27] MEDS: SODIUM CHLORIDE 0.9% 1,000 ML IV SCH ×2 (04:48→23:38)
[2020-06-27 05:00] VITALS: BP_SYST 109; BP_SYST 143; BP_DIAS 69; BP_DIAS 75
[2020-06-27 09:00] VITALS: BP 138/74
[2020-06-27] MEDS: TIMOLOL MAL 0.5% OPTH(EYE) SOL 5ML EACHEYE SCH ×2 (10:43→21:32)
[2020-06-27] MEDS: levoFLOXacin 500MG 100 ML IV SCH (10:43)
[2020-06-27] MEDS: PANTOPRAZOLE 40 MG/10 ML VIAL INJ IV SCH (10:43)
[2020-06-27] MEDS: LISINOPRIL 10 MG TAB PO SCH (10:52)
[2020-06-27] MEDS ORDERED: LEVOTHYROXINE SODIUM 100 MCG TAB PO ONE (11:00)
[2020-06-27] MEDS ORDERED: DULoxetine HCL 30 MG CAP PO ONE (11:00)
[2020-06-27 12:35] VITALS: BP 143/81
[2020-06-27 17:00] VITALS: BP 142/73
[2020-06-27] MEDS: GABAPENTIN 400 MG CAP PO SCH (17:45)
[2020-06-27] MEDS: LATANOPROST 0.005 % OPTH(EYE) SOL 2.5ML EACHEYE SCH (21:32)
[2020-06-27] MEDS: DULoxetine HCL 30 MG CAP PO SCH (21:33)
[2020-06-27 21:34] VITALS: BP 148/71
[2020-06-28 05:11] VITALS: BP 144/74
[2020-06-28 06:19] LABS: Basophils # (auto) 0 10 ^3/uL (0-0.2); Basophils % (auto) 0.3 % (0.0-2.0); Eosinophils # (auto) 0.3 10 ^3/uL (0-0.8); Eosinophils % (auto) 4.8 % (0.0-7.0); Hematocrit 31.6 % (41.0-53.0); Hemoglobin 10.7 g/dL (13.5-17.5); Lymphocytes # (auto) 1.2 10 ^3/uL (0.4-5.4); Lymphocytes % (auto) 16.7 % (10.0-50.0); Mean Corpuscular Hemoglobin 29.1 pg (28.0-32.0); Mean Corpuscular Hgb Conc. 33.9 g/dL (32.0-36.0); Mean Corpuscular Volume 85.9 fL (80.0-100.0); Monocytes # (auto) 1.2 10 ^3/uL (0-1.3); Monocytes % (auto) 17.9 % (0.0-12.0); Neutrophils # (auto) 4.2 10 ^3/uL (1.6-8.6); Neutrophils % (auto) 60.3 % (37.0-80.0); Platelet Count (auto) 220 10^3/uL (140-450); Red Blood Cells 3.68 10^6/uL (4.5-5.90); Red Cell Distribution Width 15.9 % (11.8-14.3); White Blood Cell 6.9 10^3/uL (4.4-10.8)
[2020-06-28 06:23] LABS: Calcium 8.4 mg/dL (8.5-10.1); Potassium 3.8 mmol/L (3.5-5.1)
[2020-06-28 06:25] LABS: BUN/Creatinine Ratio 11.6
[2020-06-28] MEDS: LEVOTHYROXINE SODIUM 100 MCG TAB PO SCH (06:33)
[2020-06-28 06:37] LABS: Bilirubin, Total 0.7 mg/dL (0.2-1.0); Total Protein 6.1 g/dL (6.4-8.2)
[2020-06-28 08:30] VITALS: BP 149/84
[2020-06-28 09:00] VITALS: BP 123/76
[2020-06-28] MEDS: SODIUM CHLORIDE 0.9% 1,000 ML IV SCH (09:10)
[2020-06-28] MEDS: DULoxetine HCL 30 MG CAP PO SCH ×2 (10:26→22:11)
[2020-06-28] MEDS: levoFLOXacin 500MG 100 ML IV SCH (10:26)
[2020-06-28] MEDS: PANTOPRAZOLE 40 MG/10 ML VIAL INJ IV SCH (10:27)
[2020-06-28] MEDS: LISINOPRIL 10 MG TAB PO SCH (10:27)
[2020-06-28] MEDS: TIMOLOL MAL 0.5% OPTH(EYE) SOL 5ML EACHEYE SCH ×2 (10:29→22:10)
[2020-06-28] MEDS ORDERED: LACTULOSE 20Gm/30ML SOLN PO ONE (13:15)
[2020-06-28 13:30] VITALS: BP 130/63
[2020-06-28] MEDS: HYDROcodone-ACET 5/325MG TAB PO PRN (16:17)
[2020-06-28 16:52] VITALS: BP 132/73
[2020-06-28] MEDS: GABAPENTIN 400 MG CAP PO SCH (17:48)
[2020-06-28 21:54] VITALS: BP 134/100
[2020-06-28] MEDS: LATANOPROST 0.005 % OPTH(EYE) SOL 2.5ML EACHEYE SCH (22:11)
[2020-06-29 04:55] VITALS: BP 145/87
[2020-06-29 06:19] LABS: Hematocrit 33.6 % (41.0-53.0); Hemoglobin 11.3 g/dL (13.5-17.5)
[2020-06-29] MEDS: LEVOTHYROXINE SODIUM 100 MCG TAB PO SCH (06:56)
[2020-06-29 08:30] VITALS: BP 135/70
[2020-06-29] MEDS: TIMOLOL MAL 0.5% OPTH(EYE) SOL 5ML EACHEYE SCH ×2 (08:52→22:42)
[2020-06-29] MEDS: DULoxetine HCL 30 MG CAP PO SCH ×2 (08:52→22:43)
[2020-06-29] MEDS: PANTOPRAZOLE 40 MG TAB PO SCH (08:52)
[2020-06-29] MEDS: LISINOPRIL 10 MG TAB PO SCH (08:53)
[2020-06-29] MEDS: HYDROcodone-ACET 5/325MG TAB PO PRN ×2 (08:54→17:40)
[2020-06-29] MEDS ORDERED: LACTULOSE 20Gm/30ML SOLN PO ONE (09:45)
[2020-06-29 13:00] VITALS: BP 133/72
[2020-06-29 16:33] VITALS: BP 137/77
[2020-06-29] MEDS: GABAPENTIN 400 MG CAP PO SCH (17:38)
[2020-06-29 21:39] VITALS: BP 121/65
[2020-06-29] MEDS: LATANOPROST 0.005 % OPTH(EYE) SOL 2.5ML EACHEYE SCH (22:43)
[2020-06-30 05:00] VITALS: BP 125/65
[2020-06-30] MEDS: LEVOTHYROXINE SODIUM 100 MCG TAB PO SCH (06:32)
[2020-06-30 08:30] VITALS: BP 151/74
[2020-06-30] MEDS: HYDROcodone-ACET 5/325MG TAB PO PRN (08:41)
[2020-06-30] MEDS: LISINOPRIL 10 MG TAB PO SCH (10:06)
[2020-06-30] MEDS: PANTOPRAZOLE 40 MG TAB PO SCH (10:06)
[2020-06-30] MEDS: DULoxetine HCL 30 MG CAP PO SCH (10:06)
[2020-06-30] MEDS: TIMOLOL MAL 0.5% OPTH(EYE) SOL 5ML EACHEYE SCH (10:14)
[2020-06-30 12:40] VITALS: BP 131/72
[2020-06-30 16:41] VITALS: BP 155/72
[2020-06-30] MEDS: GABAPENTIN 400 MG CAP PO SCH (18:00)
== END 2020-06-30 18:41 | disposition home or self-care (01) | DRG 414 ==
LOC: SUR 06:13 → TELE 10:25 → TELE-WESTW 14:56
PROVIDERS: ADMIT Internal Medicine; ATTEND Internal Medicine
PROC: 0FT40ZZ Resection of Gallbladder, Open Approach (ICD-10-PCS; principal; 2020-06-25 08:02)
DX: K80.10 Calculus of gallbladder with chronic cholecystitis without obstruction (principal); N17.0 Acute kidney failure with tubular necrosis; N39.0 Urinary tract infection, site not specified; Z20.822 Contact with and (suspected) exposure to COVID-19; G62.9 Polyneuropathy, unspecified; F32.9 Major depressive disorder, single episode, unspecified; E03.9 Hypothyroidism, unspecified; E78.5 Hyperlipidemia, unspecified; N18.31 Chronic kidney disease, stage 3a; E66.9 Obesity, unspecified; I12.9 Hypertensive chronic kidney disease with stage 1 through stage 4 chronic kidney disease, or unspecified chronic kidney disease; Z68.29 Body mass index [BMI] 29.0-29.9, adult; I25.10 Atherosclerotic heart disease of native coronary artery without angina pectoris; Z85.51 Personal history of malignant neoplasm of bladder; Z93.6 Other artificial openings of urinary tract status; Z95.1 Presence of aortocoronary bypass graft
CPT/HCPCS: 36415; 71045; 80053; 81001; 85007; 85014; 85018; 85025; 85027; 85610; 85730; 86850; 86900; 86901; 87081; 87086; 87088; 87186; 97110; 97116; 97530; C9113; G0378; J0330; J0690; J1956; J2001; J2250; J2405; J2704; J3490

== ENCOUNTER → 2020-07-17 | Outpatient (CLI) | payer MEDICARE | END | disposition home or self-care (01) | LOC: Rad HDHVI 09:50 | PROVIDERS: ATTEND Internal Medicine Cardiovascular Disease | DX: S82.042A Displaced comminuted fracture of left patella, initial encounter for closed fracture (principal); M25.462 Effusion, left knee; M79.89 Other specified soft tissue disorders; X58.XXXA Exposure to other specified factors, initial encounter; Y93.89 Activity, other specified; Y92.89 Other specified places as the place of occurrence of the external cause; Y99.8 Other external cause status | CPT/HCPCS: 73562 ==

== ENCOUNTER 2020-07-30 15:23 | Inpatient (IN) | payer MEDICARE ==
[~2020-07-30] VITALS: Ht 185.4 cm; Wt 100.5 kg
[~2020-07-30 15:23] MED LIST changes: -GABA400C PO; -LISI-646 PO; +LISI20TA28 PO
[2020-07-30 16:10] LABS: Basophils # (auto) 0.1 10 ^3/uL (0-0.2); Basophils % (auto) 0.8 % (0.0-2.0); Eosinophils # (auto) 0.3 10 ^3/uL (0-0.8); Eosinophils % (auto) 3.3 % (0.0-7.0); Hemoglobin 11.5 g/dL (13.5-17.5); Lymphocytes # (auto) 1.8 10 ^3/uL (0.4-5.4); Lymphocytes % (auto) 23.8 % (10.0-50.0); Mean Corpuscular Hemoglobin 27.8 pg (28.0-32.0); Mean Corpuscular Volume 86.7 fL (80.0-100.0); Monocytes % (auto) 13.5 % (0.0-12.0); Neutrophils # (auto) 4.4 10 ^3/uL (1.6-8.6); Neutrophils % (auto) 58.6 % (37.0-80.0); Red Blood Cells 4.15 10^6/uL (4.5-5.90); Red Cell Distribution Width 17.2 % (11.8-14.3); White Blood Cell 7.5 10^3/uL (4.4-10.8)
[2020-07-30 16:11] LABS: Urine Amorphous Crystal FEW /hpf (None Seen); Urine Bacteria NONE SEEN /hpf (None Seen); Urine Blood 1+ /uL (Negative); Urine Specific Gravity 1.009 (1.001-1.035); Urine WBC 15 /hpf (0 - 3); Urine WBC Clumps PRESENT /hpf (None Seen)
[2020-07-30 16:25] LABS: Albumin 3.2 g/dL (3.4-5.0); Anion Gap 6 (5-15); Blood Urea Nitrogen 27 mg/dL (7-18); Calcium 8.6 mg/dL (8.5-10.1); Carbon Dioxide 25 mmol/L (21-32); Chloride 105 mmol/L (98-107); Glucose 107 mg/dL (74-106); Potassium 4.6 mmol/L (3.5-5.1); Sodium 136 mmol/L (136-145)
[2020-07-30 16:29] LABS: Alanine Aminotransferase 16 U/L (16-61); Alkaline Phosphatase 99 U/L (45-117); Aspartate Aminotransferase 17 U/L (15-37); Bilirubin, Total 0.3 mg/dL (0.2-1.0); GFR African American 66 mL/min; GFR Non-African American 54 mL/min; Total Protein 6.4 g/dL (6.4-8.2)
[2020-07-30] MEDS ORDERED: levoFLOXacin 250MG 50 ML IV ONE (17:45)
[2020-07-30] MEDS ORDERED: MORPHINE SULFATE INJECTION 2 MG/ML SYRG IV PRN (18:15)
[2020-07-30] MEDS ORDERED: NITROGLYCERIN 0.4 MG SL TAB SL PRN (18:15)
[2020-07-30 18:32] LABS: INR 1.09 (0.9-1.15); Partial Thromboplastin Time 32.6 sec (23.0-31.2)
[2020-07-30] MEDS: SODIUM CHLORIDE 0.9% 1,000 ML IV SCH (18:54)
[2020-07-30] MEDS: HYDROcodone-ACET 5/325MG TAB PO PRN (18:54)
[2020-07-30 21:25] VITALS: BP 160/74
[2020-07-30] MEDS: ATORVASTATIN 20 MG TAB PO SCH (22:03)
[2020-07-30] MEDS: DULoxetine HCL 30 MG CAP PO SCH (22:03)
[2020-07-30] MEDS: GABAPENTIN 400 MG CAP PO SCH (22:04)
[2020-07-30] MEDS: LISINOPRIL 20 MG TAB PO SCH (22:07)
[2020-07-30 22:56] VITALS: BP 160/74
[2020-07-31 04:53] VITALS: BP 147/72
[2020-07-31] MEDS: FAMOTIDINE 20 MG TAB PO SCH (06:06)
[2020-07-31] MEDS: ASPirin-EC 81 mg tab PO SCH (06:06)
[2020-07-31] MEDS: HYDROcodone-ACET 5/325MG TAB PO PRN ×3 (06:07→22:01)
[2020-07-31] MEDS: CLOPIDOGREL BISULFATE 75 MG TAB PO SCH (06:07)
[2020-07-31] MEDS: LEVOTHYROXINE SODIUM 100 MCG TAB PO SCH (06:07)
[2020-07-31 09:00] VITALS: BP 131/75
[2020-07-31] MEDS: DULoxetine HCL 30 MG CAP PO SCH ×2 (09:17→21:48)
[2020-07-31] MEDS: levoFLOXacin 500 MG TAB PO SCH (09:18)
[2020-07-31] MEDS: GABAPENTIN 400 MG CAP PO SCH ×2 (09:18→21:48)
[2020-07-31] MEDS: SODIUM CHLORIDE 0.9% 1,000 ML IV SCH ×2 (09:18→17:00)
[2020-07-31] MEDS: TIMOLOL MAL 0.5% OPTH(EYE) SOL 5ML EACHEYE SCH (10:32)
[2020-07-31 13:00] VITALS: BP 120/75
[2020-07-31 16:56] VITALS: BP 129/61
[2020-07-31] MEDS: ATORVASTATIN 20 MG TAB PO SCH (21:48)
[2020-07-31] MEDS ORDERED: LATANOPROST 0.005 % OPTH(EYE) SOL 2.5ML EACHEYE SCH (22:00)
[2020-07-31] MEDS: LISINOPRIL 20 MG TAB PO SCH (22:00)
[2020-07-31 22:29] VITALS: BP 124/67
[2020-08-01] MEDS: SODIUM CHLORIDE 0.9% 1,000 ML IV SCH ×2 (03:00→13:00)
[2020-08-01 05:10] VITALS: BP 142/75
[2020-08-01] MEDS: CLOPIDOGREL BISULFATE 75 MG TAB PO SCH (06:23)
[2020-08-01] MEDS: ASPirin-EC 81 mg tab PO SCH (06:23)
[2020-08-01] MEDS: TIMOLOL MAL 0.5% OPTH(EYE) SOL 5ML EACHEYE SCH (06:23)
[2020-08-01] MEDS: LEVOTHYROXINE SODIUM 100 MCG TAB PO SCH (06:23)
[2020-08-01] MEDS: FAMOTIDINE 20 MG TAB PO SCH (06:23)
[2020-08-01] MEDS: HYDROcodone-ACET 5/325MG TAB PO PRN ×2 (06:24→14:46)
[2020-08-01 09:00] VITALS: BP 122/69
[2020-08-01] MEDS: DULoxetine HCL 30 MG CAP PO SCH (09:23)
[2020-08-01] MEDS: GABAPENTIN 400 MG CAP PO SCH (09:24)
[2020-08-01] MEDS: levoFLOXacin 500 MG TAB PO SCH (09:24)
[2020-08-01 13:00] VITALS: BP 105/61
[2020-08-01 17:00] VITALS: BP 117/65
[2020-08-01 17:26] VITALS: BP 124/67
== END 2020-08-01 18:00 | disposition home or self-care (01) | DRG 312 ==
LOC: EDBD 15:23 → ER 15:23 → TELE 18:11 → TELE-WESTW 21:00
PROVIDERS: ADMIT Internal Medicine Cardiovascular Disease; ATTEND Internal Medicine Cardiovascular Disease
DX: I95.1 Orthostatic hypotension (principal); N39.0 Urinary tract infection, site not specified; E86.9 Volume depletion, unspecified; E03.9 Hypothyroidism, unspecified; I12.9 Hypertensive chronic kidney disease with stage 1 through stage 4 chronic kidney disease, or unspecified chronic kidney disease; I25.10 Atherosclerotic heart disease of native coronary artery without angina pectoris; N18.9 Chronic kidney disease, unspecified; Z81.8 Family history of other mental and behavioral disorders; Z82.49 Family history of ischemic heart disease and other diseases of the circulatory system; Z85.51 Personal history of malignant neoplasm of bladder; Z90.49 Acquired absence of other specified parts of digestive tract; Z95.1 Presence of aortocoronary bypass graft; Z20.822 Contact with and (suspected) exposure to COVID-19; Z88.1 Allergy status to other antibiotic agents; Z88.2 Allergy status to sulfonamides; W18.30XA Fall on same level, unspecified, initial encounter; Y93.89 Activity, other specified; Y92.89 Other specified places as the place of occurrence of the external cause; Y99.8 Other external cause status; S82.042D Displaced comminuted fracture of left patella, subsequent encounter for closed fracture with routine healing
CPT/HCPCS: 36415; 70450; 73562; 80053; 81001; 83880; 84484; 85025; 85610; 85730; 87081; 87086; 87426; 93005; 96365; 97110; 97116; 97163; 97530; G0378

== ENCOUNTER → 2020-08-12 | Outpatient (CLI) | payer MEDICARE ==
[~2020-08-12] VITALS: Ht 182.9 cm; Wt 95.3 kg
[~2020-08-12] MED LIST changes: +ADENOSINE 80 MG in GIVE UN-DILUTED 0 ML IV ONE; +ADENOSINE 90 MG/30 ML INJ IV ONE; -DENO60SO SC; -PANT40TA2 PO
== END | disposition home or self-care (01) ==
LOC: Rad HDHVI 14:10
PROVIDERS: ATTEND Internal Medicine Cardiovascular Disease
DX: I25.10 Atherosclerotic heart disease of native coronary artery without angina pectoris (principal); I10 Essential (primary) hypertension; R07.9 Chest pain, unspecified; E78.5 Hyperlipidemia, unspecified; Z95.1 Presence of aortocoronary bypass graft; Z82.49 Family history of ischemic heart disease and other diseases of the circulatory system
CPT/HCPCS: 78452; 93005; 96374; 96375; A9500; J0153

== ENCOUNTER → 2021-05-18 | Outpatient (CLI) | payer MEDICARE ==
[~2021-05-18] MED LIST changes: -ADENOSINE 80 MG in GIVE UN-DILUTED 0 ML IV ONE; -ADENOSINE 90 MG/30 ML INJ IV ONE
== END | disposition home or self-care (01) ==
LOC: Rad HDHVI 11:43
PROVIDERS: ATTEND Internal Medicine
DX: M17.11 Unilateral primary osteoarthritis, right knee (principal); M85.88 Other specified disorders of bone density and structure, other site; J98.11 Atelectasis; W19.XXXA Unspecified fall, initial encounter; Z95.1 Presence of aortocoronary bypass graft; Y93.89 Activity, other specified; Y92.89 Other specified places as the place of occurrence of the external cause; Y99.8 Other external cause status
CPT/HCPCS: 71100; 73562

== ENCOUNTER → 2021-06-10 | Outpatient (CLI) | payer MEDICARE | END | disposition home or self-care (01) | LOC: Rad HDHVI 10:57 | PROVIDERS: ATTEND Internal Medicine Cardiovascular Disease | DX: I65.23 Occlusion and stenosis of bilateral carotid arteries (principal); I25.10 Atherosclerotic heart disease of native coronary artery without angina pectoris; I10 Essential (primary) hypertension | CPT/HCPCS: 93880 ==

== ENCOUNTER → 2021-09-11 | Outpatient (CLI) | payer MEDICARE ==
[~2021-09-11] MED LIST changes: +EMPA1TAB3 PO; +HYDR-4798 PO
[2021-09-11 08:10] VITALS: BP 99/55
[2021-09-11 08:40] VITALS: BP 103/57
[2021-09-11 11:17] LABS: Basophils # (auto) 0.1 10 ^3/uL (0-0.2); Basophils % (auto) 1.1 % (0.0-2.0); Eosinophils # (auto) 0.3 10 ^3/uL (0-0.8); Eosinophils % (auto) 3.5 % (0.0-7.0); Hematocrit 37.3 % (41.0-53.0); Hemoglobin 11.4 g/dL (13.5-17.5); Lymphocytes # (auto) 2.4 10 ^3/uL (0.4-5.4); Lymphocytes % (auto) 31.1 % (10.0-50.0); Mean Corpuscular Hemoglobin 23.6 pg (28.0-32.0); Mean Corpuscular Hgb Conc. 30.5 g/dL (32.0-36.0); Mean Corpuscular Volume 77.4 fL (80.0-100.0); Neutrophils % (auto) 51.3 % (37.0-80.0); Nucleated Red Blood Cells % 0.1 %; Red Blood Cells 4.82 10^6/uL (4.5-5.90); Red Cell Distribution Width 19.3 % (11.8-14.3); White Blood Cell 7.8 10^3/uL (4.4-10.8)
[2021-09-11 11:32] LABS: BUN/Creatinine Ratio 19.5; Calcium 8.8 mg/dL (8.5-10.1); Potassium 4.4 mmol/L (3.5-5.1)
[2021-09-11 11:33] LABS: INR 1.07 (0.9-1.15); Partial Thromboplastin Time 30.4 sec (23.6-33.0)
== END | disposition home or self-care (01) ==
LOC: Rad HDHVI 08:02
PROVIDERS: ATTEND Internal Medicine Cardiovascular Disease
DX: Z01.818 Encounter for other preprocedural examination (principal); I20.0 Unstable angina; I50.9 Heart failure, unspecified; R06.02 Shortness of breath; J98.4 Other disorders of lung; M47.814 Spondylosis without myelopathy or radiculopathy, thoracic region; Z95.1 Presence of aortocoronary bypass graft
CPT/HCPCS: 36415; 71046; 80048; 85025; 85610; 85730; 93005; G0463

== ENCOUNTER 2021-09-15 11:13 | Day surgery (SDC) | payer MEDICARE ==
[~2021-09-15] VITALS: Ht 182.9 cm; Wt 99.8 kg
[~2021-09-15 11:13] MED LIST changes: -HYDR-4833 PO; -LATA0.0019 EACHEYE
[2021-09-15] MEDS ORDERED: IOHEXOL 350 MG/ML 100ML IJ ONE (14:27)
[2021-09-15] MEDS ORDERED: ANGIOMAX 250 MG VIAL IV ONE (14:33)
[2021-09-15] MEDS ORDERED: SODIUM CHL 0.9% 50 ML ONE (14:33)
[2021-09-15] MEDS ORDERED: fentaNYL CITRATE 100 MCG/2 ML VL ONE (14:33)
[2021-09-15] MEDS ORDERED: MIDAZOLAM HCL 2MG/2ML 2ml VIAL (1mg/ml) ONE (14:33)
[2021-09-15] MEDS ORDERED: LIDOCAINE 2%HCL (LOCAL ANESTH.) INJ 10ml MDV ONE (14:35)
[2021-09-15] MEDS ORDERED: NITROGLYCERIN 0.4MG/DOSE SPRAY 4.9GM ONE (15:31)
[2021-09-15] MEDS ORDERED: SODIUM CHL 0.9% 1,000 ML IV SCH (16:00)
[2021-09-15] MEDS ORDERED: FUROSEMIDE 40 MG/4 ML VIAL IV ONE (17:00)
[2021-09-15] MEDS ORDERED: POTASSIUM CHL 20 Meq TABLET PO ONE (17:00)
[2021-09-15] MEDS ORDERED: SODIUM CHL 0.9% 1,000 ML IV ONE (17:00)
== END 2021-09-15 18:20 | disposition home or self-care (01) ==
LOC: CATH 11:13
PROVIDERS: ATTEND Internal Medicine Cardiovascular Disease
DX: I25.10 Atherosclerotic heart disease of native coronary artery without angina pectoris (principal); I10 Essential (primary) hypertension; E78.5 Hyperlipidemia, unspecified; I25.2 Old myocardial infarction; E11.40 Type 2 diabetes mellitus with diabetic neuropathy, unspecified; E11.21 Type 2 diabetes mellitus with diabetic nephropathy; E11.51 Type 2 diabetes mellitus with diabetic peripheral angiopathy without gangrene; F32.A Depression, unspecified; I25.5 Ischemic cardiomyopathy; Z79.02 Long term (current) use of antithrombotics/antiplatelets; Z95.5 Presence of coronary angioplasty implant and graft; Z87.891 Personal history of nicotine dependence; Z82.49 Family history of ischemic heart disease and other diseases of the circulatory system; Z82.5 Family history of asthma and other chronic lower respiratory diseases; Z81.8 Family history of other mental and behavioral disorders; Z81.1 Family history of alcohol abuse and dependence; Z81.3 Family history of other psychoactive substance abuse and dependence; Z20.822 Contact with and (suspected) exposure to COVID-19
CPT/HCPCS: 36225; 75705; 75736; 93459; C1760; C1887; C1894; J0583; J1644; J2001; J2250; J3010; Q9967; U0003; 33510; 93454; 99152; 99153

== ENCOUNTER 2021-11-06 11:56 | Inpatient (IN) | payer MEDICARE ==
[2021-11-06] VITALS (7 sets, daily range): BP systolic 119–136; BP diastolic 61–72
[~2021-11-06] VITALS: Ht 182.9 cm; Wt 93.8 kg
[~2021-11-06 11:56] MED LIST changes: -FAMO-12 PO; +FAMO40TA7 PO; -GABA400C11 PO; +GABA800T97 PO; +LISI-275 PO; -LISI20TA28 PO; +PANT40T PO
[2021-11-06] MEDS ORDERED: fentaNYL CITRATE 100 MCG/2 ML VL ONE (13:17)
[2021-11-06] MEDS ORDERED: ANGIOMAX 250 MG VIAL IV ONE (13:17)
[2021-11-06] MEDS ORDERED: MIDAZOLAM HCL 2MG/2ML 2ml VIAL (1mg/ml) ONE (13:18)
[2021-11-06] MEDS ORDERED: IOHEXOL 350 MG/ML 100ML IJ ONE (13:18)
[2021-11-06] MEDS ORDERED: LIDOCAINE 2%HCL (LOCAL ANESTH.) INJ 20ML MDV ONE (13:18)
[2021-11-06] MEDS ORDERED: SODIUM CHL 0.9% 50 ML ONE (13:18)
[2021-11-06] MEDS ORDERED: CLOPIDOGREL BISULFATE 75 MG TAB ONE (14:22)
[2021-11-06] MEDS ORDERED: NITROGLYCERIN 0.4 MG SL TAB SL PRN (14:45)
[2021-11-06] MEDS ORDERED: HYDROcodone-ACET 10/325MG TAB PO PRN (15:15)
[2021-11-06] MEDS ORDERED: EMPAGLIFLOZIN PO SCH (18:00)
[2021-11-06] MEDS ORDERED: PANTOPRAZOLE 40 MG TAB PO SCH (18:00)
[2021-11-06] MEDS ORDERED: ATORVASTATIN 20 MG TAB PO SCH (18:00)
[2021-11-06] MEDS ORDERED: [UNRECOGNIZED DRUG - OTHER] PO SCH (18:00)
[2021-11-06] MEDS ORDERED: GABAPENTIN 400 MG CAP PO SCH ×2 (18:00→22:00)
[2021-11-06] MEDS: SODIUM CHLOR 0.9% PF (SALINE LOCK) 10ML VIAL/SYR IV SCH (22:34)
[2021-11-06] MEDS: TIMOLOL MAL 0.5% OPTH(EYE) SOL 5ML EACHEYE SCH (22:34)
[2021-11-07] MEDS ORDERED: DEXTROSE (50%) 50ML SYRG IV PRN (00:45)
[2021-11-07 05:00] VITALS: BP 115/62
[2021-11-07] MEDS: SODIUM CHLOR 0.9% PF (SALINE LOCK) 10ML VIAL/SYR IV SCH (06:26)
[2021-11-07] MEDS: ACCU-CHEK COMFORT CURVE STRIP VI SCH ×2 (06:41→12:44)
[2021-11-07] MEDS: InsuLIN REG 1unit/0.01ml Soln (100units/ml) SC SCH ×2 (06:41→11:30)
[2021-11-07] MEDS ORDERED: ASPirin-EC 81 mg tab PO SCH (07:00)
[2021-11-07] MEDS ORDERED: LEVOTHYROXINE SODIUM 100 MCG TAB PO SCH (07:00)
[2021-11-07] MEDS ORDERED: LISINOPRIL 5 MG TAB PO SCH (07:00)
[2021-11-07 08:00] VITALS: BP 123/68
[2021-11-07 09:00] VITALS: BP 123/68
[2021-11-07] MEDS ORDERED: FAMOTIDINE 20 MG TAB PO SCH (10:00)
[2021-11-07] MEDS ORDERED: CLOPIDOGREL BISULFATE 75 MG TAB PO SCH (10:00)
[2021-11-07] MEDS: TIMOLOL MAL 0.5% OPTH(EYE) SOL 5ML EACHEYE SCH (10:35)
[2021-11-07 13:00] VITALS: BP 102/64
[2021-11-07 13:02] VITALS: BP 123/68
== END 2021-11-07 14:15 | disposition home or self-care (01) | DRG 247 ==
LOC: CATH 11:56 → TELE-WESTW 14:39
PROVIDERS: ADMIT Internal Medicine Cardiovascular Disease; ATTEND Internal Medicine Cardiovascular Disease
PROC: 027034Z Dilation of Coronary Artery, One Artery with Drug-eluting Intraluminal Device, Percutaneous Approach (ICD-10-PCS; principal; 2021-11-06)
PROC: B2131ZZ Fluoroscopy of Multiple Coronary Artery Bypass Grafts using Low Osmolar Contrast (ICD-10-PCS; 2021-11-06)
PROC: B2181ZZ Fluoroscopy of Left Internal Mammary Bypass Graft using Low Osmolar Contrast (ICD-10-PCS; 2021-11-06)
PROC: B2111ZZ Fluoroscopy of Multiple Coronary Arteries using Low Osmolar Contrast (ICD-10-PCS; 2021-11-06)
PROC: B2151ZZ Fluoroscopy of Left Heart using Low Osmolar Contrast (ICD-10-PCS; 2021-11-06)
PROC: B3121ZZ Fluoroscopy of Left Subclavian Artery using Low Osmolar Contrast (ICD-10-PCS; 2021-11-06)
PROC: B3121ZZ Fluoroscopy of Left Subclavian Artery using Low Osmolar Contrast (ICD-10-PCS; 2021-11-06)
DX: I25.110 Atherosclerotic heart disease of native coronary artery with unstable angina pectoris (principal); I10 Essential (primary) hypertension; I25.5 Ischemic cardiomyopathy; N28.9 Disorder of kidney and ureter, unspecified; E11.40 Type 2 diabetes mellitus with diabetic neuropathy, unspecified; Z20.822 Contact with and (suspected) exposure to COVID-19; E78.5 Hyperlipidemia, unspecified; Z81.8 Family history of other mental and behavioral disorders; I25.2 Old myocardial infarction; Z82.49 Family history of ischemic heart disease and other diseases of the circulatory system; Z87.891 Personal history of nicotine dependence; Z95.1 Presence of aortocoronary bypass graft; Z79.84 Long term (current) use of oral hypoglycemic drugs
CPT/HCPCS: 36225; 36415; 71046; 80048; 82962; 85025; 85610; 85730; 92928; 93455; 99152; 99153; C1874; C1887; G0378; G0463; J2250

== ENCOUNTER 2022-03-20 12:15 | Emergency (ER) | payer MEDICARE ==
[~2022-03-20] VITALS: Ht 182.9 cm; Wt 101.7 kg
[2022-03-20 14:04] VITALS: BP 114/53
[2022-03-20] MEDS ORDERED: TETANUS-DIPTH-ACEL PERTUSSIS 0.5ML SYR Tdap IM ONE (14:30)
== END 2022-03-20 14:30 | disposition home or self-care (01) ==
LOC: ER 12:15
DX: S61.212A Laceration without foreign body of right middle finger without damage to nail, initial encounter (principal); W26.8XXA Contact with other sharp object(s), not elsewhere classified, initial encounter; Y93.89 Activity, other specified; Y92.89 Other specified places as the place of occurrence of the external cause; Y99.8 Other external cause status
CPT/HCPCS: 12001; 90471; 90715

== ENCOUNTER → 2022-06-01 | Outpatient (CLI) | payer MEDICARE | END | disposition home or self-care (01) | LOC: Rad HDHVI 11:03 | PROVIDERS: ATTEND Internal Medicine Cardiovascular Disease | DX: I11.0 Hypertensive heart disease with heart failure (principal); I50.43 Acute on chronic combined systolic (congestive) and diastolic (congestive) heart failure; R07.89 Other chest pain | CPT/HCPCS: 93306 ==

== ENCOUNTER → 2022-06-28 | Outpatient (CLI) | payer MEDICARE | END | disposition home or self-care (01) | LOC: Rad HDHVI 08:58 | PROVIDERS: ATTEND Internal Medicine Cardiovascular Disease | DX: M76.892 Other specified enthesopathies of left lower limb, excluding foot (principal); M76.891 Other specified enthesopathies of right lower limb, excluding foot; M25.562 Pain in left knee; M25.561 Pain in right knee | CPT/HCPCS: 73562 ==

== ENCOUNTER → 2022-12-24 | Outpatient (CLI) | payer MEDICARE | END | disposition home or self-care (01) | LOC: Rad HDHVI 14:04 | PROVIDERS: ATTEND Internal Medicine Cardiovascular Disease | DX: I51.7 Cardiomegaly (principal); E78.5 Hyperlipidemia, unspecified; R00.2 Palpitations | CPT/HCPCS: 93306 ==

== ENCOUNTER 2023-10-01 21:43 | Emergency (ER) | payer MEDICARE ==
[~2023-10-01] VITALS: Ht 182.9 cm; Wt 92.0 kg
[~2023-10-01 21:43] MED LIST changes: +DENO60SO SC; +LATA0.0020 OP; -LISI-275 PO; -PANT40T PO
[2023-10-01 21:54] VITALS: BP 109/55; PULSE 68; RESP 16; TEMP 98; O2SAT 96
[2023-10-01 22:50] LABS: Basophils # (auto) 0.1 10 ^3/uL (0-0.2); Basophils % (auto) 0.9 % (0.0-2.0); Eosinophils # (auto) 0.2 10 ^3/uL (0-0.8); Eosinophils % (auto) 2.6 % (0.0-7.0); Hematocrit 48.2 % (41.0-53.0); Hemoglobin 15.8 g/dL (13.5-17.5); Mean Corpuscular Hemoglobin 32.6 pg (28.0-32.0); Mean Corpuscular Hgb Conc. 32.8 g/dL (32.0-36.0); Mean Corpuscular Volume 99.5 fL (80.0-100.0); Monocytes # (auto) 1.2 10 ^3/uL (0-1.3); Monocytes % (auto) 13.4 % (0.0-12.0); Neutrophils # (auto) 5.6 10 ^3/uL (1.6-8.6); Neutrophils % (auto) 61.1 % (37.0-80.0); Red Blood Cells 4.84 10^6/uL (4.5-5.90); Red Cell Distribution Width 14.1 % (11.8-14.3); White Blood Cell 9.2 10^3/uL (4.4-10.8)
[2023-10-01 23:05] LABS: Alanine Aminotransferase 16 U/L (7-40); Albumin 4.1 g/dL (3.2-4.8); Alkaline Phosphatase 100 U/L (46-116); Anion Gap 6 (5-15); Aspartate Aminotransferase 18 U/L (13-40); Bilirubin, Total 0.3 mg/dL (0.2-1.0); Blood Urea Nitrogen 24 mg/dL (9-23); Calcium 9.5 mg/dL (8.7-10.4); Carbon Dioxide 25 mmol/L (20-30); Chloride 108 mmol/L (98-107); Glucose 137 mg/dL (74-106); Potassium 4.5 mmol/L (3.5-5.1); Sodium 139 mmol/L (136-145); Total Protein 6.4 g/dL (5.7-8.2)
[2023-10-01 23:07] LABS: INR 1.12 (0.9-1.15); Partial Thromboplastin Time 31.4 SEC (24.5-34.5); Prothrombin Time 11.8 sec (9.3-11.8)
[2023-10-02 02:04] LABS: Urine Bacteria MANY /hpf (None Seen); Urine Blood 3+ /uL (Negative); Urine Clarity Turbid (Clear); Urine Color Yellow (Yellow); Urine Mucus FEW (None Seen); Urine Protein, UAD 1+ (Negative); Urine Specific Gravity 1.015 (1.001-1.035); Urine Urobilinogen Normal (Negative); Urine WBC 170 /hpf (0 - 3); Urine WBC Clumps PRESENT /hpf (None Seen); Urine pH 5.5 (5.0-9.0)
[2023-10-02] MEDS: levoFLOXacin 250 MG TAB PO ONE (02:15)
[2023-10-02] MEDS ORDERED: LEVO750T40 PO (02:19)
== END 2023-10-02 02:12 | disposition left against medical advice (07) ==
LOC: ER 21:43
DX: N39.0 Urinary tract infection, site not specified (principal); E78.5 Hyperlipidemia, unspecified; I10 Essential (primary) hypertension; Z88.2 Allergy status to sulfonamides; Z88.1 Allergy status to other antibiotic agents
CPT/HCPCS: 36415; 74176; 80053; 81001; 85025; 85610; 85730

== ENCOUNTER → 2024-04-11 | Outpatient (CLI) | payer MEDICARE ==
[~2024-04-11] MED LIST changes: +LEVO750T40 PO
== END | disposition home or self-care (01) ==
LOC: Rad HDHVI 08:05
PROVIDERS: ATTEND Internal Medicine Cardiovascular Disease
DX: I10 Essential (primary) hypertension (principal)
CPT/HCPCS: 93880

== ENCOUNTER → 2024-04-17 | Outpatient (CLI) | payer MEDICARE | END | disposition home or self-care (01) | LOC: Rad HDHVI 07:58 | PROVIDERS: ATTEND Internal Medicine Cardiovascular Disease | DX: I11.9 Hypertensive heart disease without heart failure (principal) | CPT/HCPCS: 93306 ==

== ENCOUNTER → 2024-04-23 | Outpatient (CLI) | payer MEDICARE ==
[~2024-04-23] VITALS: Ht 182.9 cm; Wt 91.6 kg
[~2024-04-23] MED LIST changes: +ADENOSINE 77 MG in GIVE UN-DILUTED 0 ML IV ONE; +ADENOSINE 90 MG/30 ML INJ IV ONE
== END | disposition home or self-care (01) ==
LOC: Rad HDHVI 13:20
PROVIDERS: ATTEND Internal Medicine Cardiovascular Disease
DX: I13.0 Hypertensive heart and chronic kidney disease with heart failure and stage 1 through stage 4 chronic kidney disease, or unspecified chronic kidney disease (principal); I50.43 Acute on chronic combined systolic (congestive) and diastolic (congestive) heart failure; E11.22 Type 2 diabetes mellitus with diabetic chronic kidney disease; N18.2 Chronic kidney disease, stage 2 (mild); E11.40 Type 2 diabetes mellitus with diabetic neuropathy, unspecified; I25.10 Atherosclerotic heart disease of native coronary artery without angina pectoris; E78.00 Pure hypercholesterolemia, unspecified; F32.A Depression, unspecified; I25.2 Old myocardial infarction; Z95.1 Presence of aortocoronary bypass graft; R42 Dizziness and giddiness
CPT/HCPCS: 78452; 93005; 96374; 96375; A9500; J0153

== ENCOUNTER 2024-08-31 13:54 | Inpatient (IN) | payer MEDICARE ==
[~2024-08-31] VITALS: Ht 182.9 cm; Wt 92.4 kg
[~2024-08-31 13:54] MED LIST changes: -ADENOSINE 77 MG in GIVE UN-DILUTED 0 ML IV ONE; -ADENOSINE 90 MG/30 ML INJ IV ONE
--- NOTE | 2024-08-31 14:20 | ED.PDOC ---
Altered Mental Status HPI Comments 83 y/o M, with PMHx of bladder cancer, depression, CAD, HLD, and HTN, BIBA, presents to the ED for CC of ALOC. EMS reports, patient is coming from home where family called d/t patient becoming increasingly disoriented, confused, and weak x1day. EMS relays, patient complains of current body-aches. Upon arrival to the ED, patient is found to be tachypneic with a slight fever at 100.4 and is hypoxic stating at 89%-90% on room air. Patient was placed on supplemental oxygen at 2 L via nasal cannula now starting at 96%. At this time patient is A&Ox2 to time and place; no other symptoms or modifiers present at this time. Chief Complaint: ALOC Time Seen by MD: 14:20 Primary Care Provider: cassia Willard Notes: Nurses Notes, Calender Let Off Helper Notes, Medications, Allergies Allergies: Coded Allergies: Cephalexin (Verified Allergy, Intermediate, Mouth swelling, 11/04/21) Sulfa Antibiotics (Verified Allergy, Intermediate, Rash, 11/04/21) Home Meds Active Scripts Levofloxacin Hemihydrate (LEVOFLOXACIN) 750 Mg Tab, 1 TAB PO DAILY, #10 TAB Prov:DELFINO MACHADO PAC 10/02/23 Reported Medications Denosumab (Prolia) 60 Mg/Ml Angela, 60 MG SC Q6HR, ML 06/20/23 Latanoprost (Xalatan) 0.005 % Angela, 0.005 % OP DAILY, ML 06/20/23 Gabapentin (Gabapentin) 800 Mg Tab, 0.5 TAB PO BIDLS for NEUROPATHY 11/04/21 Famotidine (Famotidine) 40 Mg Tab, 1 TAB PO QAM for GERD 11/04/21 Empagliflozin (Jardiance) 25 Mg Tab, 25 MG PO QPM for DIABETES 09/11/21 Hydrocodone-Acetaminophen (Hydrocodone Bitartrate/AC 10-325 mg) 1 Tab Tab, 1 TAB PO TIDP PRN for BACK PAIN, TAB 09/11/21 Levothyroxine Sodium (Levothyroxine Sodium) 100 Mcg Tab, 1 TAB PO QAM for HYPOTHYROIDISM 08/24/19 Atorvastatin Calcium (Lipitor) 80 Mg Tab, 1 TAB PO QPM for HIGH CHOLESTEROL 08/24/19 Aspirin (Aspir-Low) 81 Mg Tab, 81 MG PO QAM for CAD 02/17/14 Clopidogrel Bisulfate (CLOPIDOGREL) 75 Mg Tab, 1 TAB PO QAM for S/P CABG 02/17/14 Duloxetine Hcl (Cymbalta) 30 Mg Cap, 1 CAP PO BID for NEUROPATHY 02/17/14 Timolol Maleate (Ophth) (Timolol Maleate) 0.5 % Angela, 1 DROP EACHEYE BID for GLAUCOMA 02/17/14 Information Source: Patient Mode of Arrival: EMS Severity: Moderate Timing: Days Duration: Since onset Prehospital treatment: None Quality: Decreased Alertness Recent: None History of: None Associated Signs and Symptoms: None Past Medical History PAST MEDICAL HISTORY: CAD, Cancer, Depression, High Lipids, HTN, Thyroid Surgical History: CABG Family History Family History: Reviewed,noncontributory to illness Social History Smoker: Non-Smoker Alcohol: Denies ETOH Use Drugs: Denies Drug Use Lives In: Home Constitutional: reports: fever Musculoskeletal: reports: others (body aches) Unable to Obtain due to: Altered Mental Status All Other Systems: Reviewed and Negative ( PER HPI) Physical Exam General Appearance: No Apparent Distress, Normal, Other (RIGHT SIDE UROSTOMY WITH CLEAR YELLOW URINE, WARM TO TOUCH ) HEENT: Normal ENT Inspection, Pharynx Normal Neck: Full Range of Motion, Non-Tender, Normal, Normal Inspection Respiratory: Chest Non-Tender, Lungs Clear, No Accessory Muscle Use, No Respiratory Distress, Other (TACHYPNEIC) Cardiovascular: No Edema, No Murmur, No Gallop, Normal Peripheral Pulses, Regular Rate/Rhythm Breast Exam: Deferred Gastrointestinal: No Organomegaly, Non Tender, No Pulsatile Mass, Normal Bowel Sounds, Soft Genitalia: Deferred Pelvic: Deferred Rectal: Deferred Extremities: No calf tenderness, Normal capillary refill, Normal inspection, Normal range of motion, Non-tender, No pedal edema Musculoskeletal : Apperance: Normal Neurologic: telehealth nurse II-XII nml as Tested, No Motor Deficits, Normal Affect, Normal Mood, No Sensory Deficits, Other (A&OX2) Cerebellar Function: Normal Reflexes: Normal Skin: Dry, Normal Color, Warm, Other (WELL HEALED SCAR TO THE STERNUM, ECCHYMOSIS TO THE LEFT AND RIGHT ANTERIOR PLATES) Lymphatic: No Adenopathy EKG EKG : Pulse Rate (adult): 84 Ringle: Normal Cardiac Rhythm: NSR Block: None Hypertrophy: None ST: Normal Was a procedure done? Was a procedure done?: No Differential Diagnosis (ALOC) Differential Diagnosis: Dehydration, Hypoglycemia, Sepsis, Other (UTI) X-Ray, Labs, Meds, VS Vital Signs Date Time Temp Pulse Resp B/P (MAP) Pulse Ox O2 Delivery O2 Flow Rate FiO2 08/31/24 16:46 97 Nasal Cannula* 2 28 08/31/24 16:31 83 16 96 Nasal Cannula* 2 28 08/31/24 16:00 85 16 131/60 (83) 97 08/31/24 15:00 98.9 91 16 151/72 (98) 97 98.9 08/31/24 14:20 84 08/31/24 14:06 84 08/31/24 13:59 100.4 84 28 167/70 (102) 94 100.4 Lab Test 08/31/24 16:23 08/31/24 14:36 Range/Units Troponin I High Sensitivity 31 22 </=54 ng/L White Blood Count 12.1 H 4.4-10.8 10^3/uL Red Blood Count 4.49 L 4.5-5.90 10^6/uL Hemoglobin 14.6 13.5-17.5 g/dL Hematocrit 43.6 41.0-53.0 % Mean Corpuscular Volume 97.0 80.0-100.0 fL Mean Corpuscular Hemoglobin 32.4 H 28.0-32.0 pg Mean Corpuscular Hemoglobin Concent 33.4 32.0-36.0 g/dL Red Cell Distribution Width 14.8 H 11.8-14.3 % Platelet Count 178 140-450 10^3/uL Mean Platelet Volume 7.4 6.9-10.8 fL Neutrophils (%) (Auto) 78.8 37.0-80.0 % Lymphocytes (%) (Auto) 6.1 L 10.0-50.0 % Monocytes (%) (Auto) 14.2 H 0.0-12.0 % Eosinophils (%) (Auto) 0.4 0.0-7.0 % Basophils (%) (Auto) 0.5 0.0-2.0 % Neutrophils # (Auto) 9.5 H 1.6-8.6 10 ^3/uL Lymphocytes # (Auto) 0.7 0.4-5.4 10 ^3/uL Monocytes # (Auto) 1.7 H 0-1.3 10 ^3/uL Eosinophils # (Auto) 0 0-0.8 10 ^3/uL Basophils # (Auto) 0.1 0-0.2 10 ^3/uL Nucleated Red Blood Cells 0.1 % Sodium Level 138 136-145 mmol/L Potassium Level 4.6 3.5-5.1 mmol/L Chloride Level 104 98-107 mmol/L Carbon Dioxide Level 29 20-31 mmol/L Anion Gap 5 5-15 Blood Urea Nitrogen 27 H 9-23 mg/dL Creatinine 1.27 0.700-1.30 mg/dL Glomerular Filtration Rate Calc 56 >90 mL/min BUN/Creatinine Ratio 21.3 H 10.0-20.0 Serum Glucose 121 H 74-106 mg/dL Lactic Acid Level 1.6 0.4-2.0 mmol/L Calcium Level 9.5 8.7-10.4 mg/dL Total Bilirubin 0.7 0.2-1.0 mg/dL Aspartate Amino Transferase (AST) 19 13-40 U/L Alanine Aminotransferase (ALT) 18 7-40 U/L Alkaline Phosphatase 82 46-116 U/L Total Protein 6.3 5.7-8.2 g/dL Albumin 4.1 3.2-4.8 g/dL 83-year-old male presents here with acute confusion. On my examination he is awake alert but oriented to person and place only. He was found to have a temperature of 101 here in the clinic. He was found to be tachypneic it greater than 22. Patient does meet SIRS criteria. I considered possible pneumonia however chest x-ray with no evidence of pneumonia. Patient unable to give urine at this time. Blood work has been done which is largely unremarkable. Patient has a normal lactic acid level 1.6. And a WBC count of 12. At this time however given patient unable to provide urine I have started the patient on Rocephin IV. Patient only given 500 cc of NS as he already has pulmonary vascular congestion on his chest x-ray and patient will not tolerate other additional fluids. At this time patient has been stable in the ER. Blood pressure has been stable. Hospitalist team has been contacted for admission. Time of 1ST Reevaluation: 14:50 Reevaluation 1ST: Unchanged Patient Education/Counseling: Diagnosis, Treatment Family Education/Counseling: No Family Present Sepsis Sepsis Reasesment Focused Exam Orders: Laboratory Tests 08/31/24 14:36: Lactic Acid Level 1.6 Recent Procedure: No On Antibiotic Therapy: Yes Respiratory Rate >20: Yes Heart Rate >90: No Temp<36 C (96.8 F) or >38.3 C: Yes SBP <90 or MAP <65 mmHG: No New Acute Mental Status Change: Yes Is the patient on CPAP, BIPAP,: No IV fluid given: Yes Departure 1 Departure Time of Disposition: 16:22 Impression: Primary Impression: Altered mental status Qualified Codes: R41.0 - Disorientation, unspecified Additional Impression: SIRS (systemic inflammatory response syndrome) Disposition: ADMITTED INPATIENT Condition: Serious Critical Care Note Critical Care Time?: No Stability Stability form required: No Heart Score Heart Score: Heart Score Response (Comments) Value History N/A 0 EKG N/A 0 Age N/A 0 Risk Factors N/A 0 Troponin N/A 0 Total 0 I personally scribed for GERMAN HINES MD ([email or web address]) on 08/31/24 at 14:20. Electronically submitted by Madeline Soto ([email or web address] Secretary). I personally scribed for GERMAN HINES MD ([email or web address]) on 08/31/24 at 14:53. Electronically submitted by Madeline Soto ([email or web address] Secretary). I personally scribed for GERMAN HINES MD ([email or web address]) on 08/31/24 at 15:00. Electronically submitted by Madeline Soto ([email or web address]). GERMAN HINES MD Aug 31, 2024 14:20
[2024-08-31 14:56] LABS: Basophils # (auto) 0.1 10 ^3/uL (0-0.2); Basophils % (auto) 0.5 % (0.0-2.0); Eosinophils # (auto) 0 10 ^3/uL (0-0.8); Eosinophils % (auto) 0.4 % (0.0-7.0); Hematocrit 43.6 % (41.0-53.0); Hemoglobin 14.6 g/dL (13.5-17.5); Lymphocytes # (auto) 0.7 10 ^3/uL (0.4-5.4); Lymphocytes % (auto) 6.1 % (10.0-50.0); Mean Corpuscular Hemoglobin 32.4 pg (28.0-32.0); Mean Corpuscular Hgb Conc. 33.4 g/dL (32.0-36.0); Monocytes # (auto) 1.7 10 ^3/uL (0-1.3); Monocytes % (auto) 14.2 % (0.0-12.0); Neutrophils # (auto) 9.5 10 ^3/uL (1.6-8.6); Neutrophils % (auto) 78.8 % (37.0-80.0); Nucleated Red Blood Cells % 0.1 %; Platelet Count (auto) 178 10^3/uL (140-450); Red Blood Cells 4.49 10^6/uL (4.5-5.90); Red Cell Distribution Width 14.8 % (11.8-14.3); White Blood Cell 12.1 10^3/uL (4.4-10.8)
[2024-08-31 15:13] LABS: Alanine Aminotransferase 18 U/L (7-40); Albumin 4.1 g/dL (3.2-4.8); Alkaline Phosphatase 82 U/L (46-116); Anion Gap 5 (5-15); Aspartate Aminotransferase 19 U/L (13-40); BUN/Creatinine Ratio 21.3 (10.0-20.0); Bilirubin, Total 0.7 mg/dL (0.2-1.0); Calcium 9.5 mg/dL (8.7-10.4); Carbon Dioxide 29 mmol/L (20-31); Chloride 104 mmol/L (98-107); Potassium 4.6 mmol/L (3.5-5.1); Sodium 138 mmol/L (136-145); Total Protein 6.3 g/dL (5.7-8.2)
[2024-08-31 15:14] LABS: Blood Urea Nitrogen 27 mg/dL (9-23); Glucose 121 mg/dL (74-106)
--- NOTE | 2024-08-31 15:46 | DVH ---
EXAM: CT HEAD WITHOUT CONTRAST HISTORY: ro bleed, aloc COMPARISON: None TECHNIQUE: Axial images of the head were obtained and reformatted in coronal and sagittal planes. All CT scans at this medical facility are performed using dose modulation techniques as appropriate t o a performed exam including the following: Automated exposure control was utilized; adjustment of th e MA and/or KV according to patient size; and use of iterative reconstruction technique. CT Dose: CTDI volume is 60.83 mGy. Dose-length product is 975.03 mGy*cm FINDINGS: There is no evidence of acute intracranial hemorrhage, mass, mass effect midline shift. There is no h ydrocephalus or extra-axial fluid collection. Calderon-white matter differentiation is maintained. The visualized paranasal sinuses and mastoid air cells are clear. The calvarium is intact. IMPRESSION: 1. No acute intracranial process. HS:Y
--- NOTE | 2024-08-31 15:51 | DVH ---
CHEST RADIOGRAPH Indication: ro pna Technique: Single frontal view of the chest was obtained Comparison: None FINDINGS: Lines and Tubes: None Lungs: No focal consolidation. Diffuse interstitial prominence. Pleura: No effusion. No pneumothorax. Cardiomediastinal contours: Heart size is within normal limits with mild atherosclerotic calcificatio n and uncoiling of the aorta. Midline sternotomy wires surgical clips are noted consistent prior his tory of CABG. Bones: No acute osseous abnormality. Surgical clips are noted over the left upper abdominal quadrant and right cardiophrenic angle. IMPRESSION: Pulmonary vascular congestion.
[2024-08-31 16:31] VITALS: PULSE 83; RESP 16; O2SAT 96
[2024-08-31] MEDS: SODIUM CHLORIDE 0.9% 1,000 ML IV ONE (17:43)
[2024-08-31] MEDS: cefTRIAXone 1GM/50ML D5W 50 ML IV ONE (17:43)
--- NOTE | 2024-08-31 18:04 | ECG ---
[facility] Test Date: 2024-08-31 Test Time: 14:06:35 Pat Name: MARILEE BERNABE Department: ED Room: 0280T Gender: M Food Service Team Member: karen : 1940 Requested By: GERMAN HINES Order Number: [id number] Reading MD: Raymon Plunkett Measurements Intervals [place] Rate: 84 P: 56 WI: 191 QRS: 50 QRSD: 116 T: 47 QT: 346 QTc: 409 Interpretive Statements Sinus rhythm Incomplete right bundle branch block Baseline wander in lead(s) V4 Electronically Signed On 09-05-2024 20:32:48 PDT by Raymon Plunkett Please click the below link to view image of tracing.
[2024-08-31] MEDS: SODIUM CHLORIDE 0.9% 1,000 ML IV SCH (21:00)
[2024-08-31] MEDS ORDERED: ONDANSETRON HCL 4 MG/2 ML VIAL IV PRN (21:00)
[2024-08-31] MEDS ORDERED: DOCUSATE SOD 100 MG CAP PO PRN (21:00)
[2024-08-31 21:08] LABS: Urine Bacteria None Seen /hpf (None Seen)
[2024-08-31 21:15] LABS: Urine Blood 2+ /uL (Negative); Urine Clarity Clear (Clear); Urine Color Light-Yellow (Yellow); Urine Protein, UAD 1+ (Negative); Urine Specific Gravity 1.014 (1.001-1.035); Urine Squamous Epithelial Cell None Seen /hpf (<5); Urine Urobilinogen Normal (Negative); Urine WBC 52 /HPF (0-3); Urine pH 6.5 (5.0-9.0)
--- NOTE | 2024-08-31 22:23 | DVHHP2 ---
History of Present Illness Reason for Visit: Altered mental status History of Present Illness The patient is a 83-year-old male with past medical history of cancer, depression, Coronary artery disease, thyroid disease, hyperlipidemia, and hypertension who presented to [facility] ED for evaluation of altered level of consciousness. Family at bedside reports patient's increasing confusion, disoriented, generalized weakness, shortness of breaths, getting worse that prompted this visit. Patient was seen and evaluated in the ED hypoxic stating at 89%-90% on room air. Patient was placed on supplemental oxygen at 2 L via nasal cannula now starting at 96%, laboratory data shows WBC 12.1, platelets 178, sodium 138, potassium 4.6, BUN 27, creatinine 1.27, glucose 121, troponin 31, blood pressure 119/79, heart rate 92, temperature 97.6 F, O2 saturation 97% on oxygen. Chest x-ray revealing pulmonary vascular congestion. On my assessment, family member at bedside, no diaphoresis, no dizziness, currently on oxygen, no nausea, no vomiting, no fever, no chills. Patient was admitted for further evaluation and medical management. Past Medical History CAD, Cancer, Depression, High Lipids, HTN, Thyroid Past Surgical History CABG Family History Reviewed, noncontributory to the management of this case. Past Social History The patient lives at home, denies smoking, alcohol or illicit drugs abuse. Review of Systems Constitutional: Yes: Weakness; No: Fever, Chills, Sweats, Malaise, Other Eyes: No: Pain, Vision change, Conjunctivae inflammation, Eyelid inflammation, Other, Redness ENT: No: Ear pain, Ear discharge, Nose pain, Nose discharge, Nose congestion, Mouth pain, Mouth swelling, Throat pain, Throat swelling, Other Respiratory: Shortness of breath, Other (SOB at rest); No: Cough, Dry, SOB with excertion, Wheezing, Hemoptysis, Pleuritic Pain, Sputum, Wheezing Cardiovascular: No: Chest Pain, Palpitations, Orthopnea, Paroxysmal Noc. Dyspnea, Edema, Lt Headedness, Other Gastrointestinal: No: Nausea, Vomiting, Abdominal Pain, Diarrhea, Constipation, Melena, Hematochezia, Other Genitourinary: No Dysuria, No Frequency, No Incontinence, No Hematuria, No Retention, No Other Musculoskeletal: No: other, neck pain, shoulder pain, arm pain, back pain, hand pain, leg pain, foot pain Skin: No: Rash, Lesions, Jaundice, Bruising, Other Neurological: No: Weakness, Numbness, Incoordination, Change in speech, Confusion, Seizures, Other Allergies: Coded Allergies: Cephalexin (Verified Allergy, Intermediate, Mouth swelling, 11/04/21) Sulfa Antibiotics (Verified Allergy, Intermediate, Rash, 11/04/21) Medications Current Medications Medications Dose Ordered Sig/James Route Start Time Stop Time Status Last Admin Dose Admin Ceftriaxone Sodium 50 ml @ 100 mls/hr DAILY@09 IV 09/01/24 09:00 Clopidogrel Bisulfate 75 mg DAILY PO 09/01/24 10:00 Famotidine 20 mg Q12HR IV 08/31/24 22:00 Atorvastatin Calcium 40 mg HS PO 08/31/24 22:00 Levothyroxine Sodium 100 mcg QAM@0600 PO 09/01/24 06:00 UNV Duloxetine HCl 30 mg BID PO 08/31/24 22:00 Sodium Chloride 1,000 ml @ 60 mls/hr [id number] IV 08/31/24 21:00 Acetaminophen/ Hydrocodone Bitart 1 tab Q4HP PRN PO 08/31/24 21:00 Ondansetron HCl 4 mg Q4HP PRN IV 08/31/24 21:00 Docusate Sodium 100 mg BIDPRN PRN PO 08/31/24 21:00 Acetaminophen 650 mg Q6HP PRN PO 08/31/24 21:00 Metoprolol Tartrate 12.5 mg BID PO 08/31/24 22:00 Exam Vital Signs Vital Signs Date Time Temp Pulse Resp B/P (MAP) Pulse Ox O2 Delivery O2 Flow Rate FiO2 08/31/24 20:00 96.7 91 16 119/79 (92) 97 96.7 08/31/24 16:46 Nasal Cannula* 2 28 General Appearance: Alert, Cooperative, No acute distress, Other (Oriented x2) HEENT: Atraumatic, PERRLA, EOMI, Mucous membr. moist/pink Respiratory: Normal air movement, Other (Diminished breath sounds) Cardiovascular: Regular rate, Normal S1, Normal S2, No murmurs Abdominal: Normal bowel sounds, Soft, No tenderness, No hepatospenomegaly, No masses Extremities: No clubbing, No cyanosis, No edema, Normal pulses, No tenderness /swelling Skin: No rashes, No breakdown, No significant lesion Neuro: Normal speech, Normal tone, Sensation intact, Cranial nerves 3-12 NL, Reflexes 2+, Other (Generalized weakness) Psych/Mental Status: Mood NL, Other (Altered mental status) Labs/Xrays Labs Test 08/31/24 20:50 08/31/24 18:33 08/31/24 14:36 Range/Units Urine Color Light-yellow Yellow Urine Clarity Clear Clear Urine pH 6.5 5.0-9.0 Urine Specific [place] 1.014 1.001-1.035 Urine Protein 1+ H Negative Urine Ketones Negative Negative Urine Blood 2+ H Negative /uL Urine Nitrite 1+ H Negative Urine Bilirubin Negative Negative Urine Urobilinogen Normal Negative mg/dL Urine Leukocyte Esterase 2+ Negative /uL Urine RBC 27 0 - 3 /hpf Urine Microscopic WBC 52 H 0-3 /HPF Urine Squamous Epithelial Cells None seen <5 /hpf Urine Bacteria None seen None Seen /hpf Urine Glucose Normal Normal mg/dL Troponin I High Sensitivity 31 </=54 ng/L Thyroid Stimulating Hormone (TSH) 0.45 L 0.55-4.78 uIU/mL White Blood Count 12.1 H 4.4-10.8 10^3/uL Red Blood Count 4.49 L 4.5-5.90 10^6/uL Hemoglobin 14.6 13.5-17.5 g/dL Hematocrit 43.6 41.0-53.0 % Mean Corpuscular Volume 97.0 80.0-100.0 fL Mean Corpuscular Hemoglobin 32.4 H 28.0-32.0 pg Mean Corpuscular Hemoglobin Concent 33.4 32.0-36.0 g/dL Red Cell Distribution Width 14.8 H 11.8-14.3 % Platelet Count 178 140-450 10^3/uL Mean Platelet Volume 7.4 6.9-10.8 fL Neutrophils (%) (Auto) 78.8 37.0-80.0 % Lymphocytes (%) (Auto) 6.1 L 10.0-50.0 % Monocytes (%) (Auto) 14.2 H 0.0-12.0 % Eosinophils (%) (Auto) 0.4 0.0-7.0 % Basophils (%) (Auto) 0.5 0.0-2.0 % Neutrophils # (Auto) 9.5 H 1.6-8.6 10 ^3/uL Lymphocytes # (Auto) 0.7 0.4-5.4 10 ^3/uL Monocytes # (Auto) 1.7 H 0-1.3 10 ^3/uL Eosinophils # (Auto) 0 0-0.8 10 ^3/uL Basophils # (Auto) 0.1 0-0.2 10 ^3/uL Nucleated Red Blood Cells 0.1 % Sodium Level 138 136-145 mmol/L Potassium Level 4.6 3.5-5.1 mmol/L Chloride Level 104 98-107 mmol/L Carbon Dioxide Level 29 20-31 mmol/L Anion Gap 5 5-15 Blood Urea Nitrogen 27 H 9-23 mg/dL Creatinine 1.27 0.700-1.30 mg/dL Glomerular Filtration Rate Calc 56 >90 mL/min BUN/Creatinine Ratio 21.3 H 10.0-20.0 Serum Glucose 121 H 74-106 mg/dL Lactic Acid Level 1.6 0.4-2.0 mmol/L Calcium Level 9.5 8.7-10.4 mg/dL Total Bilirubin 0.7 0.2-1.0 mg/dL Aspartate Amino Transferase (AST) 19 13-40 U/L Alanine Aminotransferase (ALT) 18 7-40 U/L Alkaline Phosphatase 82 46-116 U/L Total Protein 6.3 5.7-8.2 g/dL Albumin 4.1 3.2-4.8 g/dL PATIENT: MARILEE BERNABE ACCT: [id number] UNIT: [id number] : 1940 LOC: ER ROOM / BED: / AGE / SEX: 83 / M ADM STATUS: REG ER SERVICE 1503 ORDERING PHYSICIAN: GERMAN HINES MD PROCEDURE(s): HWOCT - HEAD WITHOUT CONTRAST REASON: ro bleed, aloc ORDER NUMBER(s): [id number], ACCESSION NUMBER(s): [id number] EXAM: CT HEAD WITHOUT CONTRAST HISTORY: ro bleed, aloc COMPARISON: None TECHNIQUE: Axial images of the head were obtained and reformatted in coronal and sagittal planes. All CT scans at this medical facility are performed using dose modulation techniques as appropriate to a performed exam including the following: Automated exposure control was utilized; adjustment of the MA and/or KV according to patient size; and use of iterative reconstruction technique. CT Dose: CTDI volume is 60.83 mGy. Dose-length product is 975.03 mGy*cm FINDINGS: There is no evidence of acute intracranial hemorrhage, mass, mass effect midline shift. There is no hydrocephalus or extra-axial fluid collection. Calderon-white matter differentiation is maintained. The visualized paranasal sinuses and mastoid air cells are clear. The calvarium is intact. IMPRESSION: 1. No acute intracranial process. ORDERING PHYSICIAN: GERMAN HINES MD PROCEDURE(s): CXRP - CHEST PORTABLE REASON: ro pna ORDER NUMBER(s): [id number], ACCESSION NUMBER(s): [id number] CHEST RADIOGRAPH Indication: ro pna Technique: Single frontal view of the chest was obtained Comparison: None FINDINGS: Lines and Tubes: None Lungs: No focal consolidation. Diffuse interstitial prominence. Pleura: No effusion. No pneumothorax. Cardiomediastinal contours: Heart size is within normal limits with mild atherosclerotic calcification and uncoiling of the aorta. Midline sternotomy wires surgical clips are noted consistent prior history of CABG. Bones: No acute osseous abnormality. Surgical clips are noted over the left upper abdominal quadrant and right cardiophrenic angle. IMPRESSION: Pulmonary vascular congestion. Assessment/Plan Assessment/Plan Altered mental status Disorientation, unspecified Urinary tract infection Leukocytosis, unspecified Generalized weakness SIRS (systemic inflammatory response syndrome) Plan 1. Admit to telemetry unit 2. Breathing treatment 3. Pain control management 4. IV antibiotic management 5. Management of fluids and electrolytes 6. Consultation for hospitalist 7. Diagnostic test chest x-ray 8. DVT prophylaxis-on aspirin 9. Repeat labs CBC, CMP in a.m. 10. Home medication reviewed and reconciled 11. Continue with current medical management 12. Treatment plan discussed with patient and RN. Patient verbalized understanding. Plan discussed with: Patient, Other (RN) My Orders Orders - NAKUL BAINS DNP Procedure Category Date Status Time Ceftriaxone 1gm/50ml PHA 09/01/24 In Process D5w (Rocephin) 09:00 Clopidogrel Bisulfate PHA 6 In Process (Plavix) 10:00 Famotidine Injection PHA 08/31/24 In Process (Pepcid Injection) 22:00 Atorvastatin (Lipitor) PHA 08/31/24 In Process 22:00 Levothyroxine Tablet PHA 09/01/24 Logged (Synthroid Tablet) 06:00 Duloxetine Hcl PHA 08/31/24 In Process Capsule (Cymbalta 22:00 Allergies MARJORIE 08/31/24 In Process 20:58 Code Status CODE 08/31/24 Transmitted 20:58 Sodium Chloride 0.9% PHA 08/31/24 In Process 21:00 Oxygen Per Hour RT 08/31/24 Transmitted 20:58 Hydrocodone-Acet PHA 08/31/24 In Process 5/325mg Tab (Thurmond 21:00 Ondansetron Hcl PHA 08/31/24 In Process (Zofran) 21:00 Docusate Sodium PHA 08/31/24 In Process Capsule (Colace 21:00 Fall Risk Precautions MARJORIE 08/31/[address] 20:58 Complete Blood Count LAB 09/01/24 Verified 04:00 Comprehensive LAB 09/01/24 Verified Metabolic Panel 04:00 Cardiac DIET 09/01/24 Transmitted Diet-2gna,Lofat,Lochol Breakfast Condition: Serious MARJORIE 08/31/24 In Process 20:58 Acetaminophen Tablet PHA 08/31/24 In Process (Tylenol Tablet) 21:00 Maintain Bed Rest MARJORIE 08/31/24 In Process 20:58 Sequential MARJORIE 08/31/24 In Process Compression Device Metoprolol Tartrate PHA 08/31/24 In Process Tablet (Lopressor Ta 22:00 Admit ADMIT 08/31/24 Verified 22:22 Nitroglycerin PHA 08/31/24 Verified Sublingual (Ntrostat 22:30 Morphine Sulfate PHA 08/31/24 Verified Injection 22:30 Stat Ekg For Chest MARJORIE 08/31/24 Verified Pain 22:22 Notify Md Of Changes MARJORIE 08/31/24 Verified From Base 22:22 Relocation Services Specialist For MARJORIE 08/31/24 Verified 24 Hours 22:22 Emergency Dysrhythmia MARJORIE 08/31/24 Verified Protocol 22:22 Rhythm Strips Once MARJORIE 08/31/24 Verified Every Shift 22:22 Oxygen By Nasal RT 08/31/24 Verified Cannula 22:22 Problem List: (1) Altered mental status (2) Disorientation, unspecified (3) Leukocytosis, unspecified (4) UTI (urinary tract infection) (5) Generalized weakness (6) SIRS (systemic inflammatory response syndrome) Date of Service: Aug 31, 2024 Billing Provider: NAKUL BAINS DNP Common Visit Codes: [id number] INP/OBS CARE (HIGH) NAKUL BAINS DNP Aug 31, 2024 22:23
[2024-08-31] MEDS ORDERED: NITROGLYCERIN 0.4 MG SL TAB SL PRN (22:30)
[2024-08-31] MEDS ORDERED: MORPHINE SULFATE 4 MG/ML SYR/VIAL IV PRN (22:30)
[2024-08-31] MEDS: METOPROLOL TARTRATE 25 MG TAB PO SCH (23:11)
[2024-08-31] MEDS: ATORVASTATIN 20 MG TAB PO SCH (23:11)
[2024-08-31] MEDS: FAMOTIDINE (10MG/ML) 2ML VL IV SCH (23:11)
[2024-08-31] MEDS: DULoxetine HCL 30 MG CAP PO SCH (23:11)
[2024-09-01 02:00] VITALS: PULSE 57; O2SAT 93
[2024-09-01 05:00] VITALS: BP 132/57; PULSE 54; RESP 19; O2SAT 94
[2024-09-01] MEDS: LEVOTHYROXINE SODIUM 88 MCG TAB PO SCH (06:04)
[2024-09-01 06:21] LABS: Basophils # (auto) 0 10 ^3/uL (0-0.2); Basophils % (auto) 0.5 % (0.0-2.0); Eosinophils # (auto) 0 10 ^3/uL (0-0.8); Eosinophils % (auto) 0.4 % (0.0-7.0); Hematocrit 37.2 % (41.0-53.0); Lymphocytes # (auto) 0.9 10 ^3/uL (0.4-5.4); Lymphocytes % (auto) 10.2 % (10.0-50.0); Mean Corpuscular Hemoglobin 33.4 pg (28.0-32.0); Mean Corpuscular Volume 95.4 fL (80.0-100.0); Monocytes # (auto) 1.4 10 ^3/uL (0-1.3); Monocytes % (auto) 16.2 % (0.0-12.0); Neutrophils # (auto) 6.4 10 ^3/uL (1.6-8.6); Neutrophils % (auto) 72.7 % (37.0-80.0); Nucleated Red Blood Cells % 0.1 %; Platelet Count (auto) 170 10^3/uL (140-450); Red Cell Distribution Width 14.7 % (11.8-14.3); White Blood Cell 8.8 10^3/uL (4.4-10.8)
[2024-09-01 06:32] LABS: Alanine Aminotransferase 13 U/L (7-40); Albumin 3.8 g/dL (3.2-4.8); Alkaline Phosphatase 73 U/L (46-116); Anion Gap 6 (5-15); Aspartate Aminotransferase 13 U/L (13-40); BUN/Creatinine Ratio 19.8 (10.0-20.0); Blood Urea Nitrogen 22 mg/dL (9-23); Calcium 9.1 mg/dL (8.7-10.4); Carbon Dioxide 26 mmol/L (20-31); Chloride 107 mmol/L (98-107); Potassium 4.2 mmol/L (3.5-5.1); Sodium 139 mmol/L (136-145)
[2024-09-01 06:33] LABS: Bilirubin, Total 0.4 mg/dL (0.2-1.0)
[2024-09-01 06:34] LABS: Glucose 108 mg/dL (74-106)
[2024-09-01] MEDS ORDERED: POLYSOL7 OP (08:49)
[2024-09-01] MEDS ORDERED: DORZ2SOL17 EACHEYE (08:49)
[2024-09-01] MEDS ORDERED: POM (08:49)
[2024-09-01] MEDS ORDERED: LATA0.008 EACHEYE (08:49)
[2024-09-01 09:00] VITALS: BP 117/39; PULSE 57; RESP 16; TEMP 98.3; O2SAT 91
[2024-09-01] MEDS: cefTRIAXone 1GM/50ML D5W 50 ML IV SCH (09:08)
[2024-09-01] MEDS: CLOPIDOGREL BISULFATE 75 MG TAB PO SCH (09:10)
[2024-09-01 16:36] VITALS: BP 128/50; PULSE 50; RESP 18; TEMP 97.4; O2SAT 98
--- NOTE | 2024-09-01 17:12 | DVHPN2 ---
Subjective in bed resting Reviewed: H&P, Labs Changes from previous H/P or p: No Changes Eyes: No Pain, No Vision change, No Conjunctivae inflammation, No Eyelid inflammation, No Other, No Redness ENT: No Ear pain, No Ear discharge, No Nose pain, No Nose discharge, No Nose congestion, No Mouth pain, No Mouth swelling, No Throat pain, No Throat swelling, No Other Cardiovascular: No Chest Pain, No Palpitations, No Orthopnea, No Paroxysmal Noc. Dyspnea, No Edema, No Lt Headedness, No Other Respiratory: No Cough, No Dry; Shortness of breath; No SOB with excertion, No Wheezing, No Hemoptysis, No Pleuritic Pain, No Sputum; Other (SOB at rest) Gastrointestinal: No Nausea, No Vomiting, No Abdominal Pain, No Diarrhea, No Constipation, No Melena, No Hematochezia, No Other Genitourinary: No Dysuria, No Frequency, No Incontinence, No Hematuria, No Retention, No Other Musculoskeletal: No other, No neck pain, No shoulder pain, No arm pain, No back pain, No hand pain, No leg pain, No foot pain Skin: No Rash, No Lesions, No Jaundice, No Bruising, No Other Objective Vitals Vital Signs Date Time Temp Pulse Resp B/P (MAP) Pulse Ox O2 Delivery O2 Flow Rate FiO2 09/01/24 16:36 97.4 50 18 128/50 (76) 98 97.4 09/01/24 07:41 Nasal Cannula* 2 28 Intake/Output Intake and Output 09/01/24 07:00 Intake Total 1050 ml Output Total 900 ml Balance 150 ml IV Total 1050 ml Output Urine Total 900 ml Medications Current Medications Medications Dose Ordered Sig/James Route Start Time Stop Time Status Last Admin Dose Admin Ceftriaxone Sodium 50 ml @ 100 mls/hr DAILY@09 IV 09/01/24 09:00 09/01/24 09:08 100 MLS/HR Clopidogrel Bisulfate 75 mg DAILY PO 09/01/24 10:00 09/01/24 09:10 75 MG Famotidine 20 mg Q12HR IV 08/31/24 22:00 09/01/24 09:10 20 MG Atorvastatin Calcium 40 mg HS PO 08/31/24 22:00 08/31/24 23:11 40 MG Levothyroxine Sodium 88 mcg QAM PO 09/01/24 07:00 09/01/24 06:04 88 MCG Duloxetine HCl 30 mg BID PO 08/31/24 22:00 09/01/24 09:10 30 MG Sodium Chloride 1,000 ml @ 60 mls/hr [id number] IV 08/31/24 21:00 09/01/24 06:06 60 MLS/HR Acetaminophen/ Hydrocodone Bitart 1 tab Q4HP PRN PO 08/31/24 21:00 Ondansetron HCl 4 mg Q4HP PRN IV 08/31/24 21:00 Docusate Sodium 100 mg BIDPRN PRN PO 08/31/24 21:00 Acetaminophen 650 mg Q6HP PRN PO 08/31/24 21:00 Metoprolol Tartrate 12.5 mg BID PO 08/31/24 22:00 08/31/24 23:11 12.5 MG Nitroglycerin 0.4 mg Q5MINP PRN SL 08/31/24 22:30 Morphine Sulfate 2 mg Q30M PRN IV 08/31/24 22:30 Laboratory Results Laboratory Tests 09/01/24 05:22 Chemistry Test 09/01/24 05:22 Albumin 3.8 g/dL (3.2-4.8) Calcium Level 9.1 mg/dL (8.7-10.4) Total Protein 6.0 g/dL (5.7-8.2) LFT Test 09/01/24 05:22 Alanine Aminotransferase (ALT) 13 U/L (7-40) Alkaline Phosphatase 73 U/L (46-116) Aspartate Amino Transferase (AST) 13 U/L (13-40) Total Bilirubin 0.4 mg/dL (0.2-1.0) HgA1c, TSH Test 08/31/24 18:33 09/01/24 05:22 Thyroid Stimulating Hormone (TSH) 0.45 uIU/mL (0.55-4.78) L Hemoglobin A1c 5.9 % A1C (<5.7) H Urinalysis Test 08/31/24 20:50 Urine Color Light-yellow (Yellow) Urine Clarity Clear (Clear) Urine pH 6.5 (5.0-9.0) Urine Specific [place] 1.014 (1.001-1.035) Urine Protein 1+ (Negative) H Urine Ketones Negative (Negative) Urine Blood 2+ /uL (Negative) H Urine Nitrite 1+ (Negative) H Urine Bilirubin Negative (Negative) Urine Urobilinogen Normal mg/dL (Negative) Urine Leukocyte Esterase 2+ /uL (Negative) Urine RBC 27 /hpf (0 - 3) Urine Microscopic WBC 52 /HPF (0-3) H Urine Squamous Epithelial Cells None seen /hpf (<5) Urine Bacteria None seen /hpf (None Seen) Urine Glucose Normal mg/dL (Normal) Microbiology Microbiology Date/Time Source Procedure Growth Status 08/31/24 20:50 Voided Urine Urine Culture - Preliminary Resulted 08/31/24 14:36 Blood Blood Culture - Preliminary NO GROWTH AFTER 24 HOURS OF INCUBATION. Resulted Assessment/Plan Assessment/Plan Altered mental status Disorientation, unspecified Urinary tract infection Leukocytosis, unspecified Generalized weakness SIRS (systemic inflammatory response syndrome) Continue IV abx Pending blood and urine cx Plan discussed with: Other (nurse) Date of Service: Sep 01, 2024 Billing Provider: HEATHER JONES MD Common Visit Codes: [id number] INP/OBS CARE(HIGH) HEATHER JONES MD Sep 01, 2024 17:12
[2024-09-01] MEDS: ACETAMINOPHEN 325 MG TAB PO PRN (18:03)
[2024-09-01 20:00] VITALS: PULSE 56
[2024-09-01 21:00] VITALS: BP 109/52; PULSE 52; RESP 17; TEMP 97.9; O2SAT 95
[2024-09-02] VITALS (8 sets, daily range): BP systolic 120–149; BP diastolic 57–66; PULSE 50–56; RESP 17–19; TEMP 97.5–98.2; O2SAT 92–100
--- NOTE | 2024-09-02 19:24 | DVHPN2 ---
Subjective in bed resting Reviewed: H&P, Labs Changes from previous H/P or p: No Changes Eyes: No Pain, No Vision change, No Conjunctivae inflammation, No Eyelid inflammation, No Other, No Redness ENT: No Ear pain, No Ear discharge, No Nose pain, No Nose discharge, No Nose congestion, No Mouth pain, No Mouth swelling, No Throat pain, No Throat swelling, No Other Cardiovascular: No Chest Pain, No Palpitations, No Orthopnea, No Paroxysmal Noc. Dyspnea, No Edema, No Lt Headedness, No Other Respiratory: No Cough, No Dry; Shortness of breath; No SOB with excertion, No Wheezing, No Hemoptysis, No Pleuritic Pain, No Sputum; Other (SOB at rest) Gastrointestinal: No Nausea, No Vomiting, No Abdominal Pain, No Diarrhea, No Constipation, No Melena, No Hematochezia, No Other Genitourinary: No Dysuria, No Frequency, No Incontinence, No Hematuria, No Retention, No Other Musculoskeletal: No other, No neck pain, No shoulder pain, No arm pain, No back pain, No hand pain, No leg pain, No foot pain Skin: No Rash, No Lesions, No Jaundice, No Bruising, No Other Objective Vitals Vital Signs Date Time Temp Pulse Resp B/P (MAP) Pulse Ox O2 Delivery O2 Flow Rate FiO2 09/02/24 17:30 97.7 53 18 149/63 (91) 100 97.7 09/02/24 08:00 Nasal Cannula* 2 28 Intake/Output Intake and Output 09/02/24 06:59 Intake Total 960 ml Output Total 3000 ml Balance -2040 ml Intake Oral 900 ml IV Total 60 ml Output Urine Total 3000 ml Medications Current Medications Medications Dose Ordered Sig/James Route Start Time Stop Time Status Last Admin Dose Admin Ceftriaxone Sodium 50 ml @ 100 mls/hr DAILY@09 IV 09/01/24 09:00 09/02/24 09:23 100 MLS/HR Clopidogrel Bisulfate 75 mg DAILY PO 09/01/24 10:00 09/02/24 09:22 75 MG Famotidine 20 mg Q12HR IV 08/31/24 22:00 09/02/24 09:23 20 MG Atorvastatin Calcium 40 mg HS PO 08/31/24 22:00 09/01/24 22:03 40 MG Levothyroxine Sodium 88 mcg QAM PO 09/01/24 07:00 09/02/24 06:04 88 MCG Duloxetine HCl 30 mg BID PO 08/31/24 22:00 09/02/24 09:24 30 MG Sodium Chloride 1,000 ml @ 60 mls/hr [id number] IV 08/31/24 21:00 09/01/24 22:02 60 MLS/HR Acetaminophen/ Hydrocodone Bitart 1 tab Q4HP PRN PO 08/31/24 21:00 Ondansetron HCl 4 mg Q4HP PRN IV 08/31/24 21:00 Docusate Sodium 100 mg BIDPRN PRN PO 08/31/24 21:00 Acetaminophen 650 mg Q6HP PRN PO 08/31/24 21:00 09/01/24 18:03 650 MG Metoprolol Tartrate 12.5 mg BID PO 08/31/24 22:00 08/31/24 23:11 12.5 MG Nitroglycerin 0.4 mg Q5MINP PRN SL 08/31/24 22:30 Morphine Sulfate 2 mg Q30M PRN IV 08/31/24 22:30 Laboratory Results Laboratory Tests 09/01/24 05:22 Urinalysis Test 08/31/24 20:50 Urine Color Light-yellow (Yellow) Urine Clarity Clear (Clear) Urine pH 6.5 (5.0-9.0) Urine Specific [place] 1.014 (1.001-1.035) Urine Protein 1+ (Negative) H Urine Ketones Negative (Negative) Urine Blood 2+ /uL (Negative) H Urine Nitrite 1+ (Negative) H Urine Bilirubin Negative (Negative) Urine Urobilinogen Normal mg/dL (Negative) Urine Leukocyte Esterase 2+ /uL (Negative) Urine RBC 27 /hpf (0 - 3) Urine Microscopic WBC 52 /HPF (0-3) H Urine Squamous Epithelial Cells None seen /hpf (<5) Urine Bacteria None seen /hpf (None Seen) Urine Glucose Normal mg/dL (Normal) Microbiology Microbiology Date/Time Source Procedure Growth Status 08/31/24 20:50 Voided Urine Urine Culture - Preliminary Resulted 08/31/24 14:36 Blood Blood Culture - Preliminary NO GROWTH AFTER 48 HOURS OF INCUBATION. Resulted Assessment/Plan Assessment/Plan Altered mental status Disorientation, unspecified Urinary tract infection Leukocytosis, unspecified Generalized weakness SIRS (systemic inflammatory response syndrome) Continue IV abx Pending blood and urine cx Plan discussed with: Patient Date of Service: Sep 02, 2024 Billing Provider: HEATHER JONES MD Common Visit Codes: [id number] INP/OBS CARE(HIGH) HEATHER JONES MD Sep 02, 2024 19:24
[2024-09-03] VITALS (8 sets, daily range): BP systolic 106–156; BP diastolic 54–76; PULSE 51–59; RESP 17–19; TEMP 97.7–98.4; O2SAT 94–100
--- NOTE | 2024-09-03 12:59 | DVHPN2 ---
Progress Note - Dictate Date Seen: Sep 02, 2024 Medical Necessity Reason Pt with a Central, PICC or Fol: No Subjective PT WITH ACUTE ONSET OF AMS PMH HTN HYPOTHYROIDISM CAD NOW WITH LEUKOCYTOSIS PYURIA vital signs Vital Sign Date Time Temp Pulse Resp B/P (MAP) Pulse Ox O2 Delivery O2 Flow Rate FiO2 09/03/24 09:13 52 106/67 09/03/24 09:00 98.1 17 100 98.1 09/03/24 08:00 Nasal Cannula* 2 28 Total Intake and Output 09/02/24 09/02/24 09/03/24 15:00 23:00 07:00 Intake Total 50 ml 1200 ml 922 ml Output Total 1900 ml 1900 ml Balance 50 ml -700 ml -978 ml medications Current Medications Medications Dose Ordered Sig/James Route Start Time Stop Time Status Last Admin Dose Admin Ceftriaxone Sodium 50 ml @ 100 mls/hr DAILY@09 IV 09/01/24 09:00 09/03/24 09:14 100 MLS/HR Clopidogrel Bisulfate 75 mg DAILY PO 09/01/24 10:00 09/03/24 09:14 75 MG Famotidine 20 mg Q12HR IV 08/31/24 22:00 09/03/24 09:12 20 MG Atorvastatin Calcium 40 mg HS PO 08/31/24 22:00 09/02/24 21:24 40 MG Levothyroxine Sodium 88 mcg QAM PO 09/01/24 07:00 09/03/24 06:07 88 MCG Duloxetine HCl 30 mg BID PO 08/31/24 22:00 09/03/24 09:14 30 MG Sodium Chloride 1,000 ml @ 60 mls/hr [id number] IV 08/31/24 21:00 09/01/24 22:02 60 MLS/HR Acetaminophen/ Hydrocodone Bitart 1 tab Q4HP PRN PO 08/31/24 21:00 Ondansetron HCl 4 mg Q4HP PRN IV 08/31/24 21:00 Docusate Sodium 100 mg BIDPRN PRN PO 08/31/24 21:00 Acetaminophen 650 mg Q6HP PRN PO 08/31/24 21:00 09/01/24 18:03 650 MG Metoprolol Tartrate 12.5 mg BID PO 08/31/24 22:00 6/6/25 23:11 12.5 MG Nitroglycerin 0.4 mg Q5MINP PRN SL 08/31/24 22:30 Morphine Sulfate 2 mg Q30M PRN IV 08/31/24 22:30 laboratory and microbiology Laboratory Tests 09/01/24 05:22 Test 09/01/24 05:22 Range/Units Serum Glucose 108 H 74-106 mg/dL Problem List ACUTE ONSET OF AMS PMH HTN HYPOTHYROIDISM CAD NOW WITH LEUKOCYTOSIS PYURIA Assessment/Plan ABG CT HEAD NEGATIVE ABX FOR UTI/ LEUKOCYTOSIS PT Plan discussed with: Patient YOLY CADET MD Sep 03, 2024 12:59
[2024-09-03 13:23] LABS: Base Excess 0.4 mmol/L (-2.0-3.0)
[2024-09-03] MEDS ORDERED: hydrALAZINE HCL 20 MG/ML VL IV PRN (15:30)
--- NOTE | 2024-09-03 17:39 | DVHPN2 ---
Subjective in bed resting Reviewed: H&P, Labs Changes from previous H/P or p: No Changes Eyes: No Pain, No Vision change, No Conjunctivae inflammation, No Eyelid inflammation, No Other, No Redness ENT: No Ear pain, No Ear discharge, No Nose pain, No Nose discharge, No Nose congestion, No Mouth pain, No Mouth swelling, No Throat pain, No Throat swelling, No Other Cardiovascular: No Chest Pain, No Palpitations, No Orthopnea, No Paroxysmal Noc. Dyspnea, No Edema, No Lt Headedness, No Other Respiratory: No Cough, No Dry; Shortness of breath; No SOB with excertion, No Wheezing, No Hemoptysis, No Pleuritic Pain, No Sputum; Other (SOB at rest) Gastrointestinal: No Nausea, No Vomiting, No Abdominal Pain, No Diarrhea, No Constipation, No Melena, No Hematochezia, No Other Genitourinary: No Dysuria, No Frequency, No Incontinence, No Hematuria, No Retention, No Other Musculoskeletal: No other, No neck pain, No shoulder pain, No arm pain, No back pain, No hand pain, No leg pain, No foot pain Skin: No Rash, No Lesions, No Jaundice, No Bruising, No Other Objective Vitals Vital Signs Date Time Temp Pulse Resp B/P (MAP) Pulse Ox O2 Delivery O2 Flow Rate FiO2 09/03/24 16:51 97.7 59 17 124/65 (84) 94 97.7 09/03/24 08:00 Nasal Cannula* 2 28 Intake/Output Intake and Output 09/03/24 07:00 Intake Total 2172 ml Output Total 3800 ml Balance -1628 ml Intake Oral 2122 ml IV Total 50 ml Output Urine Total 3800 ml # Bowel Movements 1 Medications Current Medications Medications Dose Ordered Sig/James Route Start Time Stop Time Status Last Admin Dose Admin Ceftriaxone Sodium 50 ml @ 100 mls/hr DAILY@09 IV 09/01/24 09:00 09/03/24 09:14 100 MLS/HR Clopidogrel Bisulfate 75 mg DAILY PO 09/01/24 10:00 09/03/24 09:14 75 MG Famotidine 20 mg Q12HR IV 08/31/24 22:00 09/03/24 09:12 20 MG Atorvastatin Calcium 40 mg HS PO 08/31/24 22:00 09/02/24 21:24 40 MG Levothyroxine Sodium 88 mcg QAM PO 09/01/24 07:00 09/03/24 06:07 88 MCG Duloxetine HCl 30 mg BID PO 08/31/24 22:00 09/03/24 09:14 30 MG Sodium Chloride 1,000 ml @ 60 mls/hr [id number] IV 08/31/24 21:00 09/03/24 15:23 60 MLS/HR Acetaminophen/ Hydrocodone Bitart 1 tab Q4HP PRN PO 08/31/24 21:00 Ondansetron HCl 4 mg Q4HP PRN IV 08/31/24 21:00 Docusate Sodium 100 mg BIDPRN PRN PO 08/31/24 21:00 Acetaminophen 650 mg Q6HP PRN PO 08/31/24 21:00 09/01/24 18:03 650 MG Metoprolol Tartrate 12.5 mg BID PO 08/31/24 22:00 08/31/24 23:11 12.5 MG Nitroglycerin 0.4 mg Q5MINP PRN SL 08/31/24 22:30 Morphine Sulfate 2 mg Q30M PRN IV 08/31/24 22:30 Hydralazine HCl 5 mg Q6HP PRN IV 09/03/24 15:30 Laboratory Results Laboratory Tests 09/01/24 05:22 Urinalysis Test 08/31/24 20:50 Urine Color Light-yellow (Yellow) Urine Clarity Clear (Clear) Urine pH 6.5 (5.0-9.0) Urine Specific [place] 1.014 (1.001-1.035) Urine Protein 1+ (Negative) H Urine Ketones Negative (Negative) Urine Blood 2+ /uL (Negative) H Urine Nitrite 1+ (Negative) H Urine Bilirubin Negative (Negative) Urine Urobilinogen Normal mg/dL (Negative) Urine Leukocyte Esterase 2+ /uL (Negative) Urine RBC 27 /hpf (0 - 3) Urine Microscopic WBC 52 /HPF (0-3) H Urine Squamous Epithelial Cells None seen /hpf (<5) Urine Bacteria None seen /hpf (None Seen) Urine Glucose Normal mg/dL (Normal) Blood Gas Results Test 09/03/24 13:16 Arterial Blood pH 7.427 (7.350-7.450) FiO2 % 28.0 Microbiology Microbiology Date/Time Source Procedure Growth Status 08/31/24 20:50 Voided Urine Urine Culture - Final Complete 08/31/24 14:36 Blood Blood Culture - Preliminary NO GROWTH AFTER 72 HOURS OF INCUBATION. Resulted Assessment/Plan Assessment/Plan Altered mental status Disorientation, unspecified Urinary tract infection Leukocytosis, unspecified Generalized weakness SIRS (systemic inflammatory response syndrome) Continue IV abx Pending blood and urine cx Plan discussed with: Patient My Orders Orders - HEATHER JONES MD Procedure Category Date Status Time Pt Request For Service PT 09/03/24 Logged 12:45 Hydralazine Injection PHA 09/03/24 In Process (Apresoline Inject 15:30 Date of Service: Sep 03, 2024 Billing Provider: HEATHER JONES MD Common Visit Codes: [id number] INP/OBS CARE(HIGH) HEATHER JONES MD Sep 03, 2024 17:39
[2024-09-04 01:00] VITALS: BP 144/86; PULSE 52; RESP 20; TEMP 97.9; O2SAT 92
[2024-09-04 05:00] VITALS: BP 146/87; PULSE 56; RESP 17; TEMP 97.7; O2SAT 92
[2024-09-04 08:00] VITALS: PULSE 53; PULSE 60; RESP 19; O2SAT 95
[2024-09-04 08:30] VITALS: BP 141/86; PULSE 50; RESP 16; TEMP 97.6; O2SAT 93
[2024-09-04] MEDS: HYDROcodone-ACET 5/325MG TAB PO PRN (10:56)
[2024-09-04 13:30] VITALS: BP 136/75; PULSE 56; RESP 18; TEMP 97.6; O2SAT 97
[2024-09-04 14:07] VITALS: BP_SYST 140; BP_SYST 143; BP_DIAS 82; BP_DIAS 84; PULSE 60; RESP 18; TEMP 36.4; O2SAT 94
--- NOTE | 2024-09-07 12:01 | DVHPN2 ---
Progress Note - Dictate Date Seen: Sep 03, 2024 Medical Necessity Reason Pt with a Central, PICC or Fol: No Subjective PT WITH ACUTE ONSET OF AMS PMH HTN HYPOTHYROIDISM CAD NOW WITH LEUKOCYTOSIS PYURIA laboratory and microbiology Laboratory Tests 09/01/24 05:22 Test 09/01/24 05:22 Range/Units Serum Glucose 108 H 74-106 mg/dL Problem List ACUTE ONSET OF AMS PMH HTN HYPOTHYROIDISM CAD NOW WITH LEUKOCYTOSIS PYURIA Assessment/Plan ABG CT HEAD NEGATIVE ABX FOR UTI/ LEUKOCYTOSIS PT SIGNIFICANT IMPROVEMENT MAY DC HOME IN AM Plan discussed with: Patient YOLY CADET MD Sep 07, 2024 12:01
--- NOTE | 2024-09-07 12:02 | DVHPN2 ---
Progress Note - Dictate Date Seen: Sep 04, 2024 Medical Necessity Reason Pt with a Central, PICC or Fol: No Subjective PT WITH ACUTE ONSET OF AMS PMH HTN HYPOTHYROIDISM CAD NOW WITH LEUKOCYTOSIS PYURIA laboratory and microbiology Laboratory Tests 09/01/24 05:22 Test 09/01/24 05:22 Range/Units Serum Glucose 108 H 74-106 mg/dL Problem List ACUTE ONSET OF AMS PMH HTN HYPOTHYROIDISM CAD NOW WITH LEUKOCYTOSIS PYURIA Assessment/Plan ABG CT HEAD NEGATIVE ABX FOR UTI/ LEUKOCYTOSIS PT SIGNIFICANT IMPROVEMENT MAY DC HOME DISCUSSED WITH RESIDENT Plan discussed with: Patient YOLY CADET MD Sep 07, 2024 12:02
--- NOTE | 2024-09-11 04:46 | DVHDS2 ---
Discharge Summary Date of Admission Aug 31, 2024 at 22:22 Date of Discharge: Sep 04, 2024 Labs/Diagnostic Data: Laboratory Results Test 09/03/24 13:16 09/01/24 05:22 08/31/24 20:50 08/31/24 18:33 Blood Gas Specimen Type Arterial Blood Gas Sample Site Right radial Blood Gas Patient Temperature 37.0 Arterial Blood Date Drawn [id number] Arterial Blood pH 7.427 (7.350-7.450) Arterial Blood Partial Pressure CO2 38.2 mmHg (35.0-48.0) Arterial Blood Partial Pressure O2 68.0 mmHg (83.0-108.0) Arterial Blood HCO3 24.6 mmol/L (21.0-28.0) Arterial Blood Oxygen Saturation 92.2 % (94.0-98.0) Arterial Blood Base Excess 0.4 mmol/L (-2.0-3.0) Arterial Blood Oxyhemoglobin 91.1 % (94.0-98.0) Arterial Blood Carboxyhemoglobin 1.0 % (0.5-1.5) Arterial Blood Methemoglobin 0.2 % (0.0-1.5) Maverick Test Yes Blood Gas Total Hemoglobin 13.70 g/dL (13.5-17.5) Blood Gas Liter Flow 2.00 Blood Gas Modality Nasal cannula FiO2 % 28.0 White Blood Count 8.8 10^3/uL (4.4-10.8) Red Blood Count 3.90 10^6/uL (4.5-5.90) Hemoglobin 13.0 g/dL (13.5-17.5) Hematocrit 37.2 % (41.0-53.0) Mean Corpuscular Volume 95.4 fL (80.0-100.0) Mean Corpuscular Hemoglobin 33.4 pg (28.0-32.0) Mean Corpuscular Hemoglobin Concent 35.0 g/dL (32.0-36.0) Red Cell Distribution Width 14.7 % (11.8-14.3) Platelet Count 170 10^3/uL (140-450) Mean Platelet Volume 7.8 fL (6.9-10.8) Neutrophils (%) (Auto) 72.7 % (37.0-80.0) Lymphocytes (%) (Auto) 10.2 % (10.0-50.0) Monocytes (%) (Auto) 16.2 % (0.0-12.0) Eosinophils (%) (Auto) 0.4 % (0.0-7.0) Basophils (%) (Auto) 0.5 % (0.0-2.0) Neutrophils # (Auto) 6.4 10 ^3/uL (1.6-8.6) Lymphocytes # (Auto) 0.9 10 ^3/uL (0.4-5.4) Monocytes # (Auto) 1.4 10 ^3/uL (0-1.3) Eosinophils # (Auto) 0 10 ^3/uL (0-0.8) Basophils # (Auto) 0 10 ^3/uL (0-0.2) Nucleated Red Blood Cells 0.1 % Sodium Level 139 mmol/L (136-145) Potassium Level 4.2 mmol/L (3.5-5.1) Chloride Level 107 mmol/L (98-107) Carbon Dioxide Level 26 mmol/L (20-31) Anion Gap 6 (5-15) Blood Urea Nitrogen 22 mg/dL (9-23) Creatinine 1.11 mg/dL (0.700-1.30) Glomerular Filtration Rate Calc 66 mL/min (>90) BUN/Creatinine Ratio 19.8 (10.0-20.0) Serum Glucose 108 mg/dL (74-106) Hemoglobin A1c 5.9 % A1C (<5.7) Calcium Level 9.1 mg/dL (8.7-10.4) Total Bilirubin 0.4 mg/dL (0.2-1.0) Aspartate Amino Transferase (AST) 13 U/L (13-40) Alanine Aminotransferase (ALT) 13 U/L (7-40) Alkaline Phosphatase 73 U/L (46-116) Total Protein 6.0 g/dL (5.7-8.2) Albumin 3.8 g/dL (3.2-4.8) Urine Color Light-yellow (Yellow) Urine Clarity Clear (Clear) Urine pH 6.5 (5.0-9.0) Urine Specific [place] 1.014 (1.001-1.035) Urine Protein 1+ (Negative) Urine Ketones Negative (Negative) Urine Blood 2+ /uL (Negative) Urine Nitrite 1+ (Negative) Urine Bilirubin Negative (Negative) Urine Urobilinogen Normal mg/dL (Negative) Urine Leukocyte Esterase 2+ /uL (Negative) Urine RBC 27 /hpf (0 - 3) Urine Microscopic WBC 52 /HPF (0-3) Urine Squamous Epithelial Cells None seen /hpf (<5) Urine Bacteria None seen /hpf (None Seen) Urine Glucose Normal mg/dL (Normal) Troponin I High Sensitivity 31 ng/L (</=54) Thyroid Stimulating Hormone (TSH) 0.45 uIU/mL (0.55-4.78) Test 08/31/24 14:36 Lactic Acid Level 1.6 mmol/L (0.4-2.0) Other Laboratory Tests 09/01/24 05:22 Brief Hx & Hospital Course: 83-year-old male with past medical history of cancer, depression, Coronary artery disease, thyroid disease, hyperlipidemia, and hypertension who presented to [facility] ED for evaluation of altered level of consciousness. Family at bedside reports patient's increasing confusion, disoriented, generalized weakness, shortness of breaths, getting worse that prompted this visit. Patient was seen and evaluated in the ED hypoxic stating at 89%-90% on room air. Patient was placed on supplemental oxygen at 2 L via nasal cannula now starting at 96%, laboratory data shows WBC 12.1, platelets 178, sodium 138, potassium 4.6, BUN 27, creatinine 1.27, glucose 121, troponin 31, blood pressure 119/79, heart rate 92, temperature 97.6 F, O2 saturation 97% on oxygen. Chest x-ray revealing pulmonary vascular congestion. On my assessment, family member at bedside, no diaphoresis, no dizziness, currently on oxygen, no nausea, no vomiting, no fever, no chills. Patient was admitted for further evaluation and medical management. Treated for UTI and WBC trended down confusion resolved Condition at Discharge: Good Final Diagnosis/Problems List Altered mental status Disorientation, unspecified Acute metabolic encephalopathy Urinary tract infection Leukocytosis, unspecified Generalized weakness Acute Hypoxic respiratory failure SIRS (systemic inflammatory response syndrome) due to UTI Discharge Disposition: Home Discharge Instruct/Medications Diet: Regular Activity: No Restrictions, As Tolerated Follow Up/Referral: PCP in 7 days Medications: home medications Discharge Statement: "Patient was advised to return to the ER or call 911 if any headaches, dizziness, shortness of breath, chest pain, abdominal pain, bleeding, fevers, or worsening of medical condition. Patient was counseled about treatment plan, medications, possible side effects, patientverbalized understanding. All questions were answered to the best of my ability. This discharge took greater then 30 minutes in planning, reviewing documentation, counseling the patient, and discussing with other team members." ASSESSMENT ASSESSMENT Assessment UTI Date of Service: Sep 04, 2024 Billing Provider: HEATHER JONES MD Common Visit Codes: [id number] DISCH DAY >30min HEATHER JONES MD Sep 11, 2024 04:46
== END 2024-09-04 16:10 | disposition home or self-care (01) | DRG 70 ==
LOC: EDUNIT# 13:54 → EDBD 13:54 → ER 13:54 → OVERFLOW 22:22 → TELE-WESTW 09-01 15:14
PROVIDERS: ADMIT Hospitalist; ATTEND Hospitalist
DX: G93.41 Metabolic encephalopathy (principal); J96.01 Acute respiratory failure with hypoxia; N30.01 Acute cystitis with hematuria; R65.10 Systemic inflammatory response syndrome (SIRS) of non-infectious origin without acute organ dysfunction; E78.5 Hyperlipidemia, unspecified; I25.10 Atherosclerotic heart disease of native coronary artery without angina pectoris; F32.A Depression, unspecified; I10 Essential (primary) hypertension; Z85.51 Personal history of malignant neoplasm of bladder; Z88.1 Allergy status to other antibiotic agents; Z88.2 Allergy status to sulfonamides; Z79.899 Other long term (current) drug therapy; Z79.891 Long term (current) use of opiate analgesic; Z79.1 Long term (current) use of non-steroidal anti-inflammatories (NSAID); Z79.82 Long term (current) use of aspirin; Z95.1 Presence of aortocoronary bypass graft
CPT/HCPCS: 36415; 36600; 70450; 71045; 80053; 81001; 82805; 83036; 83605; 84443; 84484; 85025; 87040; 87086; 93005; 96365; 97163; G0378; J3490